=== PATIENT | female | born 1995 | race Caucasian/White ===

== ENCOUNTER 2018-02-14 10:04 | Day surgery (SDC) | payer SELFPAY ==
--- NOTE | 2018-02-11 15:37 | EKG12_ITS ---
Test Reason : PREOP Blood Pressure : / mmHG Vent. Rate : 082 BPM Atrial Rate : 082 BPM P-R Int : 132 ms QRS Dur : 090 ms QT Int : 372 ms P-R-T Axes : 063 074 059 degrees QTc Int : 434 ms Normal sinus rhythm Normal ECG Confirmed by MO MELCHOR, MARY ([id number]), medical transcription editor CHELSEA JORGE ([id number]) on 02/12/2018 11:14:06 AM Referred By: Liza Ayala Confirmed By:MARY HASSAN MD
[2018-02-11 16:38] LABS: Internal QC Validated? YES +Cl - CLEAR BKGD; Pregnancy, Urine Negative Negative
[2018-02-11 17:02] LABS: Hematocrit 44.4 % (37-47); Hemoglobin 15.1 g/dl (12.0-15.0); Mean Corpuscular Hgb 30.4 pg (27.0-32.0); Mean Corpuscular Volume 89.3 fL (81-99); Mean Platelet Vol. 10.1 fl (6.2-12.0); Platelet Count 240 K/mm3 (150-450); RBC Distribution Width CV 12.4 % (11.6-14.6); RBC Distribution Width SD 39.5 fl (35.1-43.9); Red Blood Count 4.97 M/mm3 (4.2-5.4); Scan Indicated on CBC? Y/N NO; White Blood Count 6.5 K/mm3 (4.4-11.0)
[2018-02-14 10:24] LABS: Internal QC Validated? YES +Cl - CLEAR BKGD; Pregnancy, Urine Negative Negative
[2018-02-14 10:39] VITALS: BP 102/72; PULSE 94; RESP 18; TEMP 37.1; O2SAT 100; BMI 21.9
[2018-02-14 11:01] LABS: Bedside Glucose 89 mg/dL (70-110)
--- NOTE | 2018-02-14 12:45 | PCM.OPRPT ---
Report of Operation Date of Procedure: 02/14/18 Pre-Operative Diagnosis: Pelvic pain, malpositioned IUD Post-Operative Diagnosis: Same Surgery/Procedure Performed:: Hysteroscopy with Mirena IUD removal Description of Surgical Findings:: Normal-appearing cervix and endometrial cavity. The IUD was in the midportion of the uterine cavity, the left arm was able to be completely identified within the uterine cavity the right arm just the very distal part extended into the myometrium on the right lateral side. Both tubal ostia were normal. retail wireless sales representative: None Type of Anesthesia:: MAC/Supplemental/Local Anesthesiologist: Gibson Fernández Special Medications: none Specimen's removed: IUD Drains: none Estimated Blood Loss (mL): 10cc Fluids Replaced: 800cc Description of Procedure: The patient was taken to the OR where she was prepped and draped in dorsal lithotomy position. The weighted speculum was placed in the vagina and the anterior lip of the cervix was grasped with a single-tooth tenaculum. The cervix was dilated serially with Hegar dilators. The 5mm hysteroscope was placed into the uterine cavity and the above findings were noted. The Mirena IUD appeared to be in the midportion of the endometrium, with just a small portion of the right arm being in the endometrial cavity. The strings were pulled up around the Mirena. A hysteroscopic grasper was used to grasp the strings and bring them out through the endocervical canal. I then used a Mago clamp to firmly grasp the strings and gently pull the Mirena IUD out intact. Bilateral tubal ostia were identified. The hysteroscope was removed. All sponge and needle counts were correct. Vaginal sweep was performed by me. The patient was awakened and taken to the recovery room in stable condition. Hysteroscopic ins: 150 cc normal saline Hysteroscopic outs: 100 cc Findings: Endometrial cavity: Normal, no fibroids or polyps noted Cervix: Normal Vagina: Normal Grafts/Implants Used: none - Complications none - Admit VTE Documentation VTE Present on Admission: No VTE Mechan Device Prophylaxis: None VTE Pharm Prophylaxis ordered?: No Reason prophylaxis not ordered:: Procedure Not Indicated
[2018-02-14 12:50] VITALS: BP 102/72; BP 97/48; PULSE 95; RESP 16; TEMP 36.6; O2SAT 96
--- NOTE | 2018-02-14 12:53 | DCINST_ITS ---
Discharge Diet: No Restrictions - resume your normal diet Discharge Activity: Return to Normal Activity, May Drive - today, May Shower, M ay Take a Tub Bath - in 2 weeks. Return to work on:: 02/17/18 May shower in (days): 1 May resume sexual activity in: 1 week Call your doctor if your incision/area has: Sudden Increased Bleeding, Foul Smelling Discharge Call your doctor if you observe: Fever of 101 or Higher, Using more than one pad per hour - for 2 hrs in a row Allergies/Adverse Reactions: Allergies codeine Allergy (Verified 02/11/18 15:28) Hives penicillin Allergy (Verified 02/11/18 15:28) Vomiting Medications to take at Discharge Insulin Glargine,Hum.rec.anlog [Lantus] 8 unit SQ BID 10/04/14 Insulin Lispro [Humalog] 6 - 8 unit SQ TID 10/04/14 Norgestimate-Ethinyl Estradiol [Tri-Previfem Tablet] 1 each PO DAILY #1 pack 02/14/18 The following prescriptions were given: Norgestimate-Ethinyl Estradiol [Tri-Previfem Tablet] 1 each PO DAILY #1 pack Primary Care Physician: Care Physician,No Primary [Primary Care Provider] - Test Results: Test results from this visit will be discussed in further detail at your follow- up appointment, if applicable. Please Follow Up With: Liza Ayala MD - [phone] When: as needed
[2018-02-14 12:55] VITALS: BP 102/72; BP 98/52; PULSE 78; RESP 16; O2SAT 97
[2018-02-14 13:00] VITALS: BP 102/72; BP 98/54; PULSE 83; RESP 16; O2SAT 97
[2018-02-14 13:05] VITALS: BP 102/72; BP 96/52; PULSE 78; RESP 16; TEMP 36.3; O2SAT 98
[2018-02-14 13:51] VITALS: BP 102/72; BP 120/70; PULSE 78; RESP 18; TEMP 36.8; O2SAT 99
== END 2018-02-14 13:55 | disposition home or self-care (01) ==
LOC: SDC 10:04 → AC 10:06
PROVIDERS: Referring Provider Obstetrics & Gynecology; Visit Provider Obstetrics & Gynecology
PROC: (CPT 49320; principal; 2018-02-14 11:45)
DX: R10.2 Pelvic and perineal pain (principal); T83.32XA Displacement of intrauterine contraceptive device, initial encounter; Y76.2 Prosthetic and other implants, materials and accessory obstetric and gynecological devices associated with adverse incidents; E10.9 Type 1 diabetes mellitus without complications; Z79.4 Long term (current) use of insulin
CPT/HCPCS: 58558; 58579; 36415; 81025; 82962; 85027; 93005; J7120

== ENCOUNTER 2020-01-10 02:15 | Outpatient (CLI) | payer OTHER, SELFPAY ==
[2020-01-10 02:32] VITALS: BMI 29.1
[2020-01-10 02:39] VITALS: BP 113/64; PULSE 117; TEMP 36.5; O2SAT 97
[2020-01-10 03:00] LABS: Bacteria 0 SEEN /hpf (None Seen); Mucous, Urine 0 SEEN /hpf (<or=2+); Red Blood Cells-Urine 0 SEEN /hpf (0-5)
[2020-01-10 03:01] LABS: Color, Urine Yellow (Yellow); Glucose, Dipstick 1000 mg/dl (Normal); Ketone-Dipstick 15 mg/dl (Negative); Leukocyte Esterase-Dipstick 25 /ul (Negative); Nitrite-Dipstick Negative (Negative); Occult Blood-Urine Negative /ul (Negative); Protein-Dipstick Negative (Negative); Specific Gravity, Urine 1.015 (1.002-1.030); Urine Bilirubin Dipstick Negative (Negative); Urine Clarity Clear (Clear); Urine Urobilinogen Normal (Normal)
[2020-01-10 03:06] LABS: Squamous Epithelial Cells - UA 0-5 SEEN /hpf (5-10); White Blood Cells 0-5 SEEN /hpf (0-5)
[2020-01-10] MEDS: Lactated Ringers 500 ML 999 ML IV (03:15)
[2020-01-10] MEDS: Lactated Ringers 1,000 ML 200 ML IV (03:15)
[2020-01-10 04:38] VITALS: BP 109/66; PULSE 105; TEMP 36.8; O2SAT 96
--- NOTE | 2020-01-10 04:40 | NURSING ---
this RN received telephone order per mahesh BRAUN to increase IV fluids to give pt the entire bag of LR that is remaining within the next hour to two hours. this RN increased IV fluids to 600cc/hr.
[2020-01-10 05:56] VITALS: BP 112/66; PULSE 110; TEMP 36.7; O2SAT 98
--- NOTE | 2020-01-10 17:12 | OB.TRI.NOTE ---
- Problem List (1) 31 weeks gestation of Status: Acute (2) Type 1 diabetes mellitus Status: Acute History of Present Illness Date of Service: 01/10/20 Was patient seen by the physician?: No Reason For Visit: back paint Final WIL: 03/12/20 Final WIL Source: LMP Gestational age: 31 Weeks and 1 Days History of Present Illness: Patient is a 24 year old at 31.1 weeks that presents to triage with lower back pain that started earlier in the evening. The back pain is now radiating to the front lower pelvic area. Denies any loss of fluid or vaginal bleeding. Positive movement. Type 1 DM with insulin pump in place. Allergies codeine Allergy (Verified 01/10/20 02:32) Hives penicillin Allergy (Verified 01/10/20 02:32) Vomiting Laboratory Studies: Laboratory Tests 01/10/20 Range/Units 02:55 Urine Color Yellow (Yellow) Urine Clarity Clear (Clear) Urine pH 7.0 (5.0 - 8.0) Ur Specific [place] 1.015 (1.002-1.030) Urine Protein Negative (Negative) mg/dl Urine Glucose (UA) 1000 H (Normal) mg/dl Urine Ketones 15 H (Negative) mg/dl Urine Occult Blood Negative (Negative) /ul Urine Nitrite Negative (Negative) Urine Bilirubin Negative (Negative) mg/dL Urine Urobilinogen Normal (Normal) mg/dl Ur Leukocyte Esterase 25 H (Negative) /ul Urine RBC 0 SEEN (0-5) /hpf Urine WBC 0-5 SEEN (0-5) /hpf Ur Squamous Epith Cells 0-5 SEEN (5-10) /hpf Urine Bacteria 0 SEEN (None Seen) /hpf Urine Mucus 0 SEEN (<or=2+) /hpf Review of Systems Constitutional: Denies: Chills, Fever Cardiovascular: Denies: Chest Pain Respiratory: Denies: Cough, Shortness of Breath Gastrointestinal: Reports: Nausea. Denies: Abdominal Pain Genitourinary: Denies: Dysuria Physical Exam Vitals: Vital Signs Temp Pulse BP Pulse Ox 98.1 F 110 H 112/66 98 01/10/20 05:56 01/10/20 05:56 01/10/20 05:56 01/10/20 05:56 General: Alert, Oriented x3 Cardiovascular: Regular rate Lungs: Normal air movement Abdomen: Soft, Non Tender, Gravid Neurological: Cranial nerves II-XII grossly intact NST - FHR Rate Baby A Baseline: 140 Variability:: Moderate Accelerations:: 15 x 15 Decelerations:: None NST Reactive:: Appropriate for gestational age Uterine Activity:: Irregular- Every 2-6 minutes. PALPATE MILD AND RELAXED IN BETWEEN Impression/Plan at 31.1 weeks gestation with back and lower pelvic pain. Patient is a Type 1 DM with insulin pump Category 1 tracing Suspect dehydration Contractions noted via TOCO- palpate mild and patient unaware that she was having them UA collected and sent- +ketones, +glucose IV fluids started- 500 cc bolus given and them to run at 250 cc/hr CE- closed, thick and high Will hydrate with IV fluids and recheck for cervical change After extended monitoring, if no CE- Patient to be d/c home to follow up in office Dr. Calabrese involved in plan of care.
== END 2020-01-10 06:15 | disposition home or self-care (01) ==
LOC: WPOUT 02:21 → WP 02:22
PROVIDERS: Visit Provider Advanced Practice Midwife
DX: O26.893 Other specified pregnancy related conditions, third trimester (principal); M54.5 Low back pain; R10.2 Pelvic and perineal pain; O24.013 Pre-existing type 1 diabetes mellitus, in pregnancy, third trimester; E10.9 Type 1 diabetes mellitus without complications; Z3A.31 31 weeks gestation of pregnancy; Z96.41 Presence of insulin pump (external) (internal)
CPT/HCPCS: 96360; 96361; 59025; 59050; 81001; 99218; J7120; G0378

== ENCOUNTER 2020-01-19 05:00 | Outpatient (CLI) | payer OTHER, MEDICAID, SELFPAY ==
[2020-01-19 05:11] VITALS: BMI 28.4
[2020-01-19 05:16] VITALS: BP 106/66; PULSE 107; TEMP 36.3; O2SAT 97
[2020-01-19 06:18] LABS: Bacteria 0 SEEN /hpf (None Seen); Mucous, Urine 0 SEEN /hpf (<or=2+); Red Blood Cells-Urine 0 SEEN /hpf (0-5)
[2020-01-19 06:19] LABS: Color, Urine Yellow (Yellow); Glucose, Dipstick 1000 mg/dl (Normal); Ketone-Dipstick Negative (Negative); Leukocyte Esterase-Dipstick 100 /ul (Negative); Nitrite-Dipstick Negative (Negative); Occult Blood-Urine Negative /ul (Negative); Protein-Dipstick 15 mg/dl (Negative); Urine Bilirubin Dipstick Negative (Negative); Urine Clarity Clear (Clear); Urine Urobilinogen Normal (Normal); Urine pH 6.5 (5.0 - 8.0)
[2020-01-19 06:27] LABS: Squamous Epithelial Cells - UA 10-25 SEEN /hpf (5-10); White Blood Cells 10-25 SEEN /hpf (0-5)
[2020-01-19 06:37] VITALS: BP 101/65; PULSE 104; TEMP 36.2; O2SAT 100
[2020-01-19 07:18] VITALS: TEMP 36.4; O2SAT 99
[2020-01-19 07:19] VITALS: BP 116/71; PULSE 103
[2020-01-19] MEDS: Lactated Ringers 1,000 ML 999 ML IV (07:58)
--- NOTE | 2020-01-25 08:27 | OB.TRI.PN_ITS ---
Progress Notes Date of Service: 01/19/20 Progress Note: 24 year old female at 32w3d presented with contractions. No vaginal bleeding or leakage of fluid. DM type 2 with insulin pump O: FHT 130, moderate variability, accels, no decels TOCO: [id number] then decreased to every 8-10minutes, mild Cervix: closed, posterior A: False Labor P: 1) False labor and closed cervix. 2) No celestone at this time due to no cervical change. Type 2 DM on insulin and will not give celestone unless indicated by cervical change. Consulted and agrees with plan Laboratory Studies: Laboratory Tests 01/19/20 Range/Units 06:10 Urine Color Yellow (Yellow) Urine Clarity Clear (Clear) Urine pH 6.5 (5.0 - 8.0) Ur Specific [place] 1.020 (1.002-1.030) Urine Protein 15 H (Negative) mg/dl Urine Glucose (UA) 1000 H (Normal) mg/dl Urine Ketones Negative (Negative) mg/dl Urine Occult Blood Negative (Negative) /ul Urine Nitrite Negative (Negative) Urine Bilirubin Negative (Negative) mg/dL Urine Urobilinogen Normal (Normal) mg/dl Ur Leukocyte Esterase 100 H (Negative) /ul Urine RBC 0 SEEN (0-5) /hpf Urine WBC 10-25 SEEN (0-5) /hpf Ur Squamous Epith Cells 10-25 SEEN (5-10) /hpf Urine Bacteria 0 SEEN (None Seen) /hpf Urine Mucus 0 SEEN (<or=2+) /hpf
== END 2020-01-19 09:08 | disposition home or self-care (01) ==
LOC: WPOUT 05:08 → OBT 05:10
PROVIDERS: Visit Provider Advanced Practice Midwife
DX: O47.03 False labor before 37 completed weeks of gestation, third trimester (principal); O24.414 Gestational diabetes mellitus in pregnancy, insulin controlled; Z3A.32 32 weeks gestation of pregnancy
CPT/HCPCS: 96360; 59025; 59050; 81001; 87086; 99218; G0378

== ENCOUNTER 2020-02-07 15:40 | Inpatient (IN) | payer OTHER, MEDICAID, SELFPAY ==
[2020-02-07] VITALS (34 sets, daily range): BP systolic 96–127; BP diastolic 55–83; PULSE 91–118; RESP 16; TEMP 36.1–37.3; O2SAT 99–100; BMI 29.3
[2020-02-07] MEDS: Lactated Ringers 1,000 ML 999 ML IV (15:00)
[2020-02-07 15:22] LABS: Absolute Lymphocyte Count 1.33 X10^3/uL (0.83-4.51); Absolute Neutrophil Count 6.2 X10^3/uL (2.0-7.7); Basophil# 0.02 X10^3/uL; Basophil% 0.2 % (0-1); Eosinophil# 0.07 X10^3/uL; Eosinophils% 0.8 % (0-5); Hematocrit 33.1 % (37-47); Hemoglobin 10.4 g/dL (12.0-15.0); Lymphocyte # 1.33 X10^3/ul (4.0); Lymphocyte % 15.9 % (19-41); Mean Corp Hgb Conc 31.4 g/dL (32-36); Mean Corpuscular Hgb 26.5 pg (27.0-32.0); Mean Corpuscular Volume 84.4 fL (81-99); Mean Platelet Vol. 9.6 fl (6.2-12.0); Monocyte# 0.73 X10^3/uL; Monocyte% 8.7 % (0-10); NRBC Flagged by Analyzer 0 % (0-5); Neutrophil # 6.15 X10^3/uL (2.7-7.7); Neutrophil % 73.8 % (47-70); Platelet Count 244 K/mm3 (150-450); RBC Distribution Width CV 14.1 % (11.6-14.6); RBC Distribution Width SD 42.9 fl (35.1-43.9); Red Blood Count 3.92 M/mm3 (4.2-5.4); White Blood Count 8.4 K/mm3 (4.4-11.0)
[2020-02-07] MEDS: Lactated Ringers 1,000 ML 200 ML IV ×2 (16:40→21:46)
[2020-02-07 16:41] LABS: Group B Strep DNA By PCR Negative (Negative); Internal Control PASS; Probe Check PASS; Specimen Processing Control PASS
[2020-02-07] MEDS: fentaNYL-bupivacaine (epidural) 100 ML BAG EPIDURAL ×2 (17:05→21:35)
[2020-02-07] MEDS: Mag Hydrox/Al Hydrox/Simeth 30 ML UDC PO (18:02)
[2020-02-07] MEDS: Ondansetron 4 MG/2 ML Vial IV (18:02)
--- NOTE | 2020-02-07 18:16 | PCM.HP.OB ---
History Date of Admission: 02/07/20 Final WIL: 03/11/20 Final WIL Source: US <20 weeks Gestational age: 35 Weeks and 2 Days History of this : This is a 24 year-old w/ poorly controlled type 1 Dm, last hgb A1c was 8.2. Had an US on 02/02 w/ mild polyhydrmanios and EFW of 3702 gm. Presents complaining contractions since approximately 5 AM. They became more more intense throughout the day. When she arrived to labor and delivery she was found to be 4 cm. She progressed to 5. She was admitted in labor. She denied any gross vaginal bleeding or leaking of fluid. She denies any headache or visual changes. He is on an insulin pump. Managed by endocrinology and she has instructions for what to change settings to once she delivers. Medical History: Medical History (Last Updated 01/10/20 @ 17:14 by Charisse Infante CNM) Insulin pump in place Z96.41 Allergies codeine Allergy (Verified 02/07/20 14:54) Hives penicillin Allergy (Verified 02/07/20 14:54) Vomiting Home Medications: Home Medications Insulin Lispro [Humalog] 6 - 8 unit SQ TID 10/04/14 Acetaminophen [Tylenol] 325 mg PO PRN PRN 01/10/20 Prenat 115/Iron Fum/Folic/Dss 1 tab PO DAILY 01/10/20 Ondansetron HCl [Zofran] 4 mg PO PRN PRN 02/07/20 Smoking Status: Never smoker Alcohol: None Number of Fetus(es): 1 History Past Pregnancies: Past Pregnancies Delivery Date Name GA/ Weeks Outcome Route Wt Infant Sex Labor Length Anesthesia Delivery Location Provider FOB Review of Systems Constitutional: Denies: Anorexia, Chills, Fever Eyes: Denies: Blurred vision HEENT: Denies: Hard of Hearing Respiratory: Denies: Cough, Shortness of Breath Gastrointestinal: Denies: Diarrhea, Vomiting Genitourinary: Denies: Dysuria Skin: Denies: Rash Neurological: Denies: Blurred vision, Double vision, Slurred speech Hematologic/ Lymphatic: Denies: Hx of blood clot Physical Exam Vitals: Vital Signs Temp Pulse BP Pulse Ox 97.7 F L 101 H 118/70 100 02/07/20 17:28 02/07/20 17:28 02/07/20 17:28 02/07/20 17:28 General: Alert, Cooperative, No apparent distress Cardiovascular: Regular rate Lungs: Normal air movement Abdomen: Soft, Non Tender, Non-Distended, Gravid, - - large for gest age Extremities:: Other - edema 1+ Neurological: Cranial nerves II-XII grossly intact. Negative for: Slurred Speech SALES ACCOUNT MANAGER: Normal external genitalia Estimated gestational size: Appropriate for gestational size Presentation: Cephalic Cervix Dilation (cm): 7 Station: 0 Effacement (%): 90 Assessment/Plan All Active Problems (Last Updated 01/10/20 @ 17:14 by Charisse Infante CNM) 31 weeks gestation of (Acute) Type 1 diabetes mellitus (Acute) This is a 24 year-old avid 2 para 1 at 35-2/7 weeks gestation with spontaneous premature labor. Patient was given 1 dose of antibiotic prophylaxis before rapid group B strep returned. Group B strep is now known to be negative. Decision was made not to proceed with betamethasone. It was determined that clinically there would be minimal time for the fetus to benefit. Since it could cause significant fluctuations in difficulty controlling glucose throughout the patient's labor, it was felt that the control harms outweighed any small potential benefit. We will monitor the patient's glucose with her own glucometer. Will allow her to continue with the insulin pump and less glucose levels become significantly labile. Mean weight is less than 4500 g and pelvis clinically adequate to expect vaginal delivery. Epidural as needed for pain control.
[2020-02-07] MEDS: proCHLORPERazine 10 MG/2 ML Vial IV (20:24)
--- NOTE | 2020-02-07 22:21 | PCM.PN.BLA ---
Progress Note Patient was pushing for approx 1.5 hrs, was frustrated and pushing ineffectively. Offered trial of low vacuum. She desired to proceed. Station was +2/5, no significant caput, bladder had been emptied, epidural in. EFW < 4500 gm. Postion was OA. Vacuum placed on flexion point and vacuum created to 550 mm hg. Pulled w/ 4 ctxs, 2 pop offs and no signif. descent. D/w patient option of c/s vs continued second stage. recommended continued second stage. pushed for a total of 3 hrs and was still +3/5 station w/ significant caput now. R/B/A/P to primary c/s vs continued pushing reviewed, patient desires to proceed w/ c/s for arrest of descent and cephalopelvic disproportion . STROKE Vital Signs/Narrative: Vital Signs Temp Pulse Resp BP Pulse Ox 02/07/20 21:49 97.2 F L 02/07/20 21:48 98.2 F 91 16 121/61 H 100 02/07/20 21:40 97.3 F L 97 121/61 H 02/07/20 20:15 91 100 02/07/20 20:14 97.0 F L 118/60 02/07/20 19:17 97.0 F L 02/07/20 19:16 97.2 F L 02/07/20 19:15 98.0 F 115 H 96/55 L 100 02/07/20 18:50 98.4 F 100 108/68 100
[2020-02-07] MEDS: Cefazolin 2 GM in 0.9% Normal Saline 100 ML IV (22:43)
--- NOTE | 2020-02-07 23:50 | OP.PCM_ITS ---
Delivery Classification: BRENDA Final WIL: 03/11/20 Final WIL Source: US <20 weeks Gestational age: 35 Weeks and 2 Days dump truck operator: Fausto De La Rosa Type of Anesthesia:: Epidural Special Medications: duramorph Implants Used: none Date of Procedure: 02/07/20 Pre-Operative Diagnosis: CPD, arrest of descent, labor, type 1 Dm Post-Operative Diagnosis: same Description of Procedure: Procedure: Primary low transverse section via Pfannenstiel skin incision with bilateral salpingectomy Patient was complete and had pushed for 3 hours. Trial of vacuum-assisted vaginal delivery was unsuccessful, you progress note for details of this p rocedure. The decision was made to proceed with a section. The patient was taken to the operating room. She was prepped and draped in the dorsal supine position with a leftward tilt. A Pfannenstiel skin incision was made approximately 2 cm above the symphysis pubis and carried through to underlying layer fascia with the scalpel. The fascia was incised incised in the midline and extended laterally with dissection. The fascia was dissected off the rectus muscles with blunt and sharp dissection superiorly. The rectus muscles were in the midline and the peritoneum was entered bluntly. The peritoneal incision was stretched and the bladder blade was placed. The uterine incision was made in a low transverse fashion with the scalpel and extended superiorly and inferiorly with blunt dissection. I was able to get my hand under the skull and I was unable to break the suction. I switched hands and even with an assisting hand from below I was unable to break the s uction. After approximately 60 seconds of attempting this, I was able to reach up and grasp the infant's buttocks and legs and bring the breech to the incision. The legs were swept out and the buttocks were delivered. The baby was kept back up. The arms were swept out. A finger was placed on the maxilla and I was able to then reach a hand under the head and deliver the infant without traction on the neck. The infant was not immediately vigorous and the cord was therefore quickly clamped and cut. The was handed off to the waiting nursing staff. The placenta was delivered with fundal massage and gentle traction in the standard fashion. The uterus was exteriorized and cleared of all clots and debris. . The uterine incision was closed with #1 Vicryl in a running locked fashion. [id number] sutures were needed to obtain hemostasis, especially in the lateral corners. There were lacerations on both sides of the cervix extending down. There is still a small amount of oozing from the left side of the incision and some fibrillar was placed there for hemostasis. Some Johan was then placed over the incision. The incision was examined and was found to be hemostatic. Patient confirmed she wanted a bilateral salpingectomy. Being that this was an unanticipated delivery and an unscheduled, urgent section that was decision was made to proceed with a tubal sterilization patient's request. Patient requested this while she was still in the labor room. Risk benefits and alternatives and personnel involved have been discussed with the patient. The left tube was identified and followed out to fimbriated end. The LigaSure for device was used to clamp, seal and transect the tube from the uterus. I then clamped across the antimesenteric portion of the tube, sealed and transected with the LigaSure device until the tube was amputated. The site was hemostatic. The same procedure was performed on the contralateral side. Hemostasis of these pedicles was again confirmed. The uterus was placed back into the peritoneal cavity and hemostasis was again confirmed. The rectus muscles were examined and any bleeding was Bovie caut erized. The parietal peritoneum and rectus muscles were closed en bloc with an 0 Vicryl running suture. The surgical teams outer gloves were then changed. The rectus fascia was examined and any bleeding was Bovie cauterized and the rectus fascia was closed with 0 PDS suture in a running standard fashion. The subcutaneous tissue was examining and any bleeding was Bovie cauterized. The subcutaneous tissue was reapproximated with 3-0 Vicryl suture. The skin was closed in a subcuticular fashion by the CHICK[employer] AND [employer] BUT[employer]ER with me present in the labor and delivery suite. I performed the remainder of the procedure with assistance. All sponge, lap, and needle counts were correct. The patient was taken to her room for recovery in a stable condition. Start time 2258 Delivery time 2303 Stop time 0002 Amniotic Membrane Rupture Type: Artificial Amniotic Fluid Description: Clear Placenta Disposition: Sent to Pathology Specimen(s) sent to pathology: placenta, bilateral fallopian tubes Drain: De Dios to straight drain Fluids Replaced: 1300 Cord Entanglement: None Cord Vessel Description: 3 Vessels Esitmated Blood Loss (ml): 900 Gender: Male Delayed cord clamping: No Antibiotic Given: Ancef 2 grams IV x1, Zithromax 500 mg/5 mL X1 Complications: None - Admit VTE Documentation VTE Present on Admission: No VTE Mechan Device Prophylaxis: SCD's VTE Pharm Prophylaxis ordered?: No Reason prophylaxis not ordered:: Procedure Not Indicated
[2020-02-08] VITALS (53 sets, daily range): BP systolic 98–122; BP diastolic 53–73; PULSE 90–114; RESP 14–18; TEMP 36.2–37.4; O2SAT 93–100
--- NOTE | 2020-02-08 | FALS_PTH ---
PATIENT: ROLAND LIN LOC: [facility] U#:[id number] AGE/SX: 24/F ROOM: WP001 RE02/07/[address]: Dr. Liza Ayala MD : 1995 BED: 1 DIS: 02/10/2020 SPEC #: [id number] RECD: 02/08/20 03:30 STATUS: MELANIE REYi #: [id number] DEBBIE: 02/08/20 00:[address]: Liza Ayala DEPT: SURGICAL PATHOLOGY RECD BY: Aron Javier ENTERED: 02/08/20 10:22 SP TYPE: FALL TUBES OTHR DR: No Primary Care Phys Tissues: Fallopian tube Procedures: Surgery Specimen Level II HEADER OPERATION: Tubal ligation PRE-OP DIAGNOSIS: Sterilization TISSUE SUBMITTED: A - Left fallopian tube, B - Right fallopian tube MICROSCOPIC DIAGNOSIS A. Left fallopian tube, salpingectomy: Fallopian tube including fimbrial end, no pathologic diagnosis. B. Right fallopian tube, salpingectomy: Fallopian tube including fimbrial end, no pathologic diagnosis. PANCHO:laina 02/09/20 MICROSCOPIC DESCRIPTION Slides are reviewed. GROSS DESCRIPTION A - Received in fixative is one container labeled with the patient's name and designated left fallopian tube. The specimen consists of a fallopian tube including fimbrial end measuring 7 cm in length and 0.7 cm in diameter. Sections reveal unremarkable cut surfaces. Publication Editor sections are submitted in one cassette. B - Received in fixative is one container labeled with the patient's name and designated right fallopian tube. The specimen consists of a fallopian tube including fimbrial end measuring 7 cm in length and 0.7 cm in diameter. Sections reveal unremarkable cut surfaces. Publication Editor sections are submitted in one cassette. / PANCHO:laina 02/08/20 TC:4 CPT: 47673 x2
[2020-02-08] MEDS: Lactated Ringers 1,000 ML 100 ML IV ×2 (00:30→03:45)
[2020-02-08] MEDS: Oxytocin 30 units/NS 500 ml 30 UNITS/500 ML IV.SOLN 167 UNITS IV (00:30)
--- NOTE | 2020-02-08 01:00 | NURSING ---
BGT 153 per patients insulin pump per recovery nurse [facility]. Insulin pump self delivered insulin at that time.
[2020-02-08] MEDS: Acetaminophen 500 MG Tablet 1000 MG PO ×4 (02:23→20:23)
[2020-02-08 03:32] LABS: Pathology Specimen OB SEE PATHOLOGY REPORT
--- NOTE | 2020-02-08 04:10 | NURSING ---
This RN assuming care of patient at this time. Received report from [facility] MILL[facility] and Gerardo RN. Patient sleeping at this time. RN in room to perform first hourly vitals.
[2020-02-08] MEDS: Ketorolac 30 MG/ML Syringe IV ×4 (06:07→23:41)
[2020-02-08 06:42] LABS: Hematocrit 27.5 % (37-47); Hemoglobin 8.7 g/dL (12.0-15.0); Mean Corp Hgb Conc 31.6 g/dL (32-36); Mean Corpuscular Hgb 26.6 pg (27.0-32.0); Mean Corpuscular Volume 84.1 fL (81-99); Mean Platelet Vol. 9.7 fl (6.2-12.0); Platelet Count 225 K/mm3 (150-450); RBC Distribution Width CV 14.3 % (11.6-14.6); RBC Distribution Width SD 43.3 fl (35.1-43.9); Red Blood Count 3.27 M/mm3 (4.2-5.4); White Blood Count 11.4 K/mm3 (4.4-11.0)
--- NOTE | 2020-02-08 06:53 | NURSING ---
Patient before breakfast BGT assessed per insulin pump for result of 144. Patient eating a yogurt at this time.
[2020-02-08] MEDS: Senna/Docusate Sodium 1 Tablet PO (09:49)
[2020-02-08] MEDS: 0.9% Saline Lock 10 ML Syringe IV ×3 (12:09→23:42)
--- NOTE | 2020-02-08 12:11 | NURSING ---
glucose per pt's meter reads 113
--- NOTE | 2020-02-08 12:27 | NURSING ---
pt up to bathroom to void, unable at this time. reminded that has until 1400 before further intervention needed. rn encouraged po intake increase. pt then ambulated to PP room 1 at this time
--- NOTE | 2020-02-08 12:34 | PCM.PN.OB ---
Subjective: Doing well per patient and nursing staff. Ambulating and taking PO without difficulty. Voiding and passing flatus. Baby in special care nursery due to BS. Denies shortness of breath, chest pain, leg pain or increased lochia. - Physical Exam Vitals/I&O's: Vital Signs Temp Pulse Resp BP Pulse Ox 97.8 F 98 16 98/53 L 97 02/08/20 11:58 02/08/20 11:58 02/08/20 11:58 02/08/20 11:58 02/08/20 11:58 Oxygen Delivery Method Room Air Weight: 171 lb 1.259 oz Body Mass Index (BMI) 29.3 Intake and Output for Last 24 Hours 02/06/20 02/07/20 02/08/20 23:59 23:59 23:59 Intake Total 2611.67 / 2611.67 1340.00 / 1340.00 Output Total 500 / 500 Balance 2611.67 / 2611.67 840.00 / 840.00 General: Alert, Oriented x3, Cooperative HEENT: Atraumatic, Normocephalic Neck: Trachea Midline Lungs: Clear to auscultation, Normal air movement, No rhonchi, No wheeze Cardiovascular: Regular rate, Regular Rhythm Abdomen: Bowel Sounds Present, Soft - Fundus firm 2 below U. Dressing dry and intact Extremities: No edema - Kelli's negative Psych/Mental Status: Normal Affect, Appropriate Microbiology Past 72 Hours 02/07/20 15:45 Mucosa - Nose SARS-CoV-2 Antigen (Rapid) - Final Laboratory Results 02/07/20 15:00: WBC 8.4, RBC 3.92 L, Hgb 10.4 L, Hct 33.1 L, MCV 84.4, MCH 26.5 L, MCHC 31.4 L, RDW Std Deviation 42.9, RDW Coeff of Dean 14.1, Plt Count 244, MPV 9.6, Immature Gran % (Auto) 0.600, Neut % (Auto) 73.8 H, Lymph % (Auto) 15.9 L, [place] % (Auto) 8.7, Eos % (Auto) 0.8, Baso % (Auto) 0.2, Absolute Neuts (auto) 6.2, Absolute Lymphs (auto) 1.33, Nucleated RBC % 0 02/07/20 15:00: Blood Type O POSITIVE, Antibody Screen NEGATIVE 02/07/20 15:00: Group B Strep DNA Negative, Specimen Comment Not Reportable 02/08/20 06:25: WBC 11.4 H, RBC 3.27 L, Hgb 8.7 L, Hct 27.5 L, MCV 84.1, MCH 26.6 L, MCHC 31.6 L, RDW Std Deviation 43.3, RDW Coeff of Dean 14.3, Plt Count 225, MPV 9.7 Current Medications Acetaminophen (Acetaminophen 500 Mg Tablet) 1,000 mg PO Q6H [facility] Last Admin: 02/08/20 07:59 Dose: 1,000 mg Documented by: Bisacodyl (Bisacodyl 10 Mg Suppository) 10 mg RECTAL UD PRN PRN Reason: If no BM Dextrose (Dextrose 50%-Water 25 Gm/50 Ml Disp.Syrin) 0 gm IV X1 PRN; Protocol PRN Reason: Hypoglycemia Diphenhydramine HCl (Diphenhydramine 25 Mg Capsule) 25 mg PO Q6H PRN PRN PRN Reason: ITCHING Stop: 02/08/20 22:33 Glucagon (Glucagon 1 Mg/Ml Syringe) 1 mg IM .X1 PRN PRN Reason: Hypoglycemia Hydrocortisone (Hydrocortisone 2.5% Crm) 1 applic TOPICAL TID PRN PRN; Protocol PRN Reason: Discomfort Ketorolac Tromethamine (Ketorolac 30 Mg/Ml Syringe) 30 mg IV Q6 [facility] Stop: 02/09/20 00:01 Last Admin: 02/08/20 12:00 Dose: 30 mg Documented by: Methylergonovine Maleate (Methylergonovine 0.2 Mg/Ml Ampul) 0.2 mg IM X1 PRN PRN Reason: Uterine Atony Nalbuphine HCl (Nalbuphine 10 Mg/Ml Ampul) 5 mg IV Q3H PRN PRN PRN Reason: ITCHING Stop: 02/08/20 22:33 Naloxone HCl (Naloxone 0.4 Mg/Ml Syringe) 0.02 mg IV Q1M PRN PRN Reason: RR <10 and pt unresponsive Naproxen (Naproxen 250 Mg Tablet) 500 mg PO Q8H [facility] Ondansetron HCl (Ondansetron 4 Mg/2 Ml Vial) 4 mg IV Q4H PRN PRN PRN Reason: Nausea Oxycodone HCl (Oxycodone 5 Mg Tablet) 5 - 10 mg PO Q4H PRN PRN PRN Reason: Pain Score 4-10 Prochlorperazine Edisylate (Prochlorperazine 10 Mg/2 Ml Vial) 10 mg IV Q6H PRN PRN PRN Reason: NAUSEA Senna/Docusate Sodium (Senna/Docusate Sodium 1 Tablet) 1 - 2 tablet PO DAILY [facility] Last Admin: 02/08/20 09:49 Dose: 1 tablet Documented by: Simethicone (Simethicone 80 Mg Tablet) 80 mg PO [facility]S PRN PRN Reason: Indigestion/stomach pain Sodium Chloride (0.9% Saline Lock 10 Ml Syringe) 5 - 15 ml IV UD PRN PRN Reason: SALINE FLUSH Last Admin: 02/08/20 12:09 Dose: 10 ml Documented by: Medical Necessity - Tobacco Use Smoking Status: Never smoker Assessment/Plan All Active Problems (Last Updated 01/10/20 @ 17:14 by Charisse Infante CNM) 31 weeks gestation of (Acute) Type 1 diabetes mellitus (Acute) A:POD #1 Primary Section Type 1 DM Acute blood loss anemia P: 1) Routine care 2) Hg 10.4 decreased to 8.7, will start iron supplement, repeat CBC in am 3) Insulin managed by Endocrinology and patient following per their recommendations. 4) Planning D/C home tomorrow.
[2020-02-08] MEDS: Ferrous Sulfate 325 MG Tablet PO (17:59)
--- NOTE | 2020-02-08 18:49 | NURSING ---
1800 bg 109 per pt
--- NOTE | 2020-02-08 23:50 | NURSING ---
Pt. reports HS blood sugar as 115 mg/dL.
[2020-02-09] MEDS: Acetaminophen 500 MG Tablet 1000 MG PO ×4 (02:29→20:24)
[2020-02-09 02:30] VITALS: BP 115/65; PULSE 82; RESP 15; TEMP 37.2
[2020-02-09 04:55] LABS: Absolute Lymphocyte Count 1.36 X10^3/uL (0.83-4.51); Absolute Neutrophil Count 7.7 X10^3/uL (2.0-7.7); Basophil# 0.01 X10^3/uL; Basophil% 0.1 % (0-1); Eosinophil# 0.06 X10^3/uL; Eosinophils% 0.6 % (0-5); Hematocrit 26.5 % (37-47); Hemoglobin 8.3 g/dL (12.0-15.0); Lymphocyte # 1.36 X10^3/ul (4.0); Lymphocyte % 13.5 % (19-41); Mean Corp Hgb Conc 31.3 g/dL (32-36); Mean Corpuscular Hgb 26.8 pg (27.0-32.0); Mean Corpuscular Volume 85.5 fL (81-99); Mean Platelet Vol. 9.5 fl (6.2-12.0); Monocyte# 0.77 X10^3/uL; Monocyte% 7.7 % (0-10); NRBC Flagged by Analyzer 0 % (0-5); Neutrophil # 7.73 X10^3/uL (2.7-7.7); Platelet Count 216 K/mm3 (150-450); RBC Distribution Width CV 14.8 % (11.6-14.6); RBC Distribution Width SD 44.9 fl (35.1-43.9)
[2020-02-09] MEDS: Naproxen 250 MG Tablet 500 MG PO ×3 (06:00→22:07)
--- NOTE | 2020-02-09 06:01 | NURSING ---
Pt. reports headache that was not relieved with the 0230 tylenol dose. Pt. refuses oxyir d/t codeine allergy. Was encouraged to rest. Aleve dose given at 0600 and this RN will follow up on pt. pain level. Reports frontal headache that is slightly throbbing at a pain level of 5/10. BP and vital signs WNL. Morning CBC showed Hgb dropped slightly but is stabilizing. Will continue to monitor.
[2020-02-09] MEDS: Senna/Docusate Sodium 1 Tablet PO (08:04)
[2020-02-09 08:18] VITALS: BP 100/73; PULSE 70; RESP 16; TEMP 36.5
--- NOTE | 2020-02-09 08:38 | PN.OBGYN_ITS ---
Subjective: Patient seen at bedside, doing well. Patient reports good pain control. Mild lochia. Denies any nausea or vomiting. Reports of blood sugars are slightly elevated but has bolused herself. Bottlefeeding. - Physical Exam Vitals/I&O's: Vital Signs Temp Pulse Resp BP Pulse Ox 97.7 F L 70 16 100/61 98 02/09/20 08:18 02/09/20 08:18 02/09/20 08:18 02/09/20 08:18 02/08/20 20:15 Oxygen Delivery Method Room Air Weight: 77.6 kg Body Mass Index (BMI) 29.3 Intake and Output for Last 24 Hours 02/07/20 02/08/20 02/09/20 23:59 23:59 23:59 Intake Total 2611.67 / 2611.67 1340.00 / 1340.00 Output Total 1200 / 1200 250 / 250 Balance 2611.67 / 2611.67 140.00 / 140.00 -250 / -250 General: Alert, Oriented x3 Abdomen: Soft, Non-Distended, Passing Flatus, - - Incision dressing dry and intact. Fundus firm. Extremities: No Calf Tenderness Neurological: Cranial nerves II-XII grossly intact Microbiology Past 72 Hours 02/07/20 15:45 Mucosa - Nose SARS-CoV-2 Antigen (Rapid) - Final Laboratory Results 02/09/20 04:50: WBC 10.0, RBC 3.10 L, Hgb 8.3 L, Hct 26.5 L, MCV 85.5, MCH 26.8 L, MCHC 31.3 L, RDW Std Deviation 44.9 H, RDW Coeff of Dean 14.8 H, Plt Count 216, MPV 9.5, Immature Gran % (Auto) 1.100 H, Neut % (Auto) 77.0 H, Lymph % (Auto) 13.5 L, [place] % (Auto) 7.7, Eos % (Auto) 0.6, Baso % (Auto) 0.1, Absolute Neuts (auto) 7.7, Absolute Lymphs (auto) 1.36, Nucleated RBC % 0 Current Medications Acetaminophen (Acetaminophen 500 Mg Tablet) 1,000 mg PO Q6H [facility] Last Admin: 02/09/20 08:02 Dose: 1,000 mg Documented by: Bisacodyl (Bisacodyl 10 Mg Suppository) 10 mg RECTAL UD PRN PRN Reason: If no BM Dextrose (Dextrose 50%-Water 25 Gm/50 Ml Disp.Syrin) 0 gm IV X1 PRN; Protocol PRN Reason: Hypoglycemia Ferrous Sulfate (Ferrous Sulfate 325 Mg Tablet) 325 mg PO 1200,1700 [facility] Last Admin: 02/08/20 17:59 Dose: 325 mg Documented by: Glucagon (Glucagon 1 Mg/Ml Syringe) 1 mg IM .X1 PRN PRN Reason: Hypoglycemia Hydrocortisone (Hydrocortisone 2.5% Crm) 1 applic TOPICAL TID PRN PRN; Protocol PRN Reason: Discomfort Methylergonovine Maleate (Methylergonovine 0.2 Mg/Ml Ampul) 0.2 mg IM X1 PRN PRN Reason: Uterine Atony Naloxone HCl (Naloxone 0.4 Mg/Ml Syringe) 0.02 mg IV Q1M PRN PRN Reason: RR <10 and pt unresponsive Naproxen (Naproxen 250 Mg Tablet) 500 mg PO Q8H [facility] Last Admin: 02/09/20 06:00 Dose: 500 mg Documented by: Ondansetron HCl (Ondansetron 4 Mg/2 Ml Vial) 4 mg IV Q4H PRN PRN PRN Reason: Nausea Oxycodone HCl (Oxycodone 5 Mg Tablet) 5 - 10 mg PO Q4H PRN PRN PRN Reason: Pain Score 4-10 Prochlorperazine Edisylate (Prochlorperazine 10 Mg/2 Ml Vial) 10 mg IV Q6H PRN PRN PRN Reason: NAUSEA Senna/Docusate Sodium (Senna/Docusate Sodium 1 Tablet) 1 - 2 tablet PO DAILY [facility] Last Admin: 02/09/20 08:04 Dose: 1 tablet Documented by: Simethicone (Simethicone 80 Mg Tablet) 80 mg PO [facility] PRN PRN Reason: Indigestion/stomach pain Sodium Chloride (0.9% Saline Lock 10 Ml Syringe) 5 - 15 ml IV UD PRN PRN Reason: SALINE FLUSH Last Admin: 02/08/20 23:42 Dose: 10 ml Documented by: Medical Necessity - Tobacco Use Smoking Status: Never smoker Assessment/Plan All Active Problems (Last Updated 01/10/20 @ 17:14 by Charisse Infante CNM) 31 weeks gestation of (Acute) Type 1 diabetes mellitus (Acute) Postop day #2-type I diabetic, section 1) monitor BS- managed by endocrinology 2) pain mgmt 3) ambulation 4) Baby is SCN- plan for dc home tomorrow
[2020-02-09] MEDS: Ferrous Sulfate 325 MG Tablet PO ×2 (12:22→17:05)
[2020-02-09 13:18] VITALS: BP 108/68; PULSE 74; RESP 18; TEMP 36.6
[2020-02-09 20:17] VITALS: BP 113/73; PULSE 95; RESP 16; TEMP 36.6
[2020-02-10 01:00] VITALS: BP 114/71; PULSE 98; RESP 16; TEMP 36.8
[2020-02-10] MEDS: Acetaminophen 500 MG Tablet 1000 MG PO ×2 (02:30→08:07)
--- NOTE | 2020-02-10 02:30 | NURSING ---
Pt. had a moment of hypoglycemia, her insulin pump continuous glucose monitor said 64 mg/dL, but pt. is completely asymptomatic. Juice and jello given, and blood sugar came up to 119 mg/dL. Pt. resting in bed, denies any further needs at this time. Will continue to monitor.
[2020-02-10] MEDS: Naproxen 250 MG Tablet 500 MG PO (06:05)
[2020-02-10 08:13] VITALS: BP 100/65; PULSE 102; RESP 14; TEMP 36.6
--- NOTE | 2020-02-10 08:58 | PN.OBGYN_ITS ---
Subjective: Pain well controlled. Average lochia. Tolerating regular diet. Managing blood sugars with insulin pump. Has had a bowel movement. Urinating without difficulty. Infant remains in special care nursery. - Physical Exam Vitals/I&O's: Vital Signs Temp Pulse Resp BP Pulse Ox 97.8 F 102 H 14 100/65 98 02/10/20 08:13 02/10/20 08:13 02/10/20 08:13 02/10/20 08:13 02/08/20 20:15 Oxygen Delivery Method Room Air Weight: 77.6 kg Body Mass Index (BMI) 29.3 Intake and Output for Last 24 Hours 02/08/20 02/09/20 02/10/20 23:59 23:59 23:59 Intake Total 1340.00 / 1340.00 Output Total 1200 / 1200 250 / 250 Balance 140.00 / 140.00 -250 / -250 General: Alert, Cooperative, No apparent distress Abdomen: Bowel Sounds Present, Distended - moderately, softly, Tender - appropriately Extremities: Edema - 1+ Microbiology Past 72 Hours 02/07/20 Unknown Genital vaginal Group B Streptococcus Culture - Final Group B Beta Streptococcus is not isolated. 02/07/20 15:45 Mucosa - Nose SARS-CoV-2 Antigen (Rapid) - Final Current Medications Acetaminophen (Acetaminophen 500 Mg Tablet) 1,000 mg PO Q6H [facility] Last Admin: 02/10/20 08:07 Dose: 1,000 mg Documented by: Bisacodyl (Bisacodyl 10 Mg Suppository) 10 mg RECTAL UD PRN PRN Reason: If no BM Dextrose (Dextrose 50%-Water 25 Gm/50 Ml Disp.Syrin) 0 gm IV X1 PRN; Protocol PRN Reason: Hypoglycemia Ferrous Sulfate (Ferrous Sulfate 325 Mg Tablet) 325 mg PO 1200,1700 [facility] Last Admin: 02/09/20 17:05 Dose: 325 mg Documented by: Glucagon (Glucagon 1 Mg/Ml Syringe) 1 mg IM .X1 PRN PRN Reason: Hypoglycemia Hydrocortisone (Hydrocortisone 2.5% Crm) 1 applic TOPICAL TID PRN PRN; Protocol PRN Reason: Discomfort Methylergonovine Maleate (Methylergonovine 0.2 Mg/Ml Ampul) 0.2 mg IM X1 PRN PRN Reason: Uterine Atony Naloxone HCl (Naloxone 0.4 Mg/Ml Syringe) 0.02 mg IV Q1M PRN PRN Reason: RR <10 and pt unresponsive Naproxen (Naproxen 250 Mg Tablet) 500 mg PO Q8H [facility] Last Admin: 02/10/20 06:05 Dose: 500 mg Documented by: Ondansetron HCl (Ondansetron 4 Mg/2 Ml Vial) 4 mg IV Q4H PRN PRN PRN Reason: Nausea Oxycodone HCl (Oxycodone 5 Mg Tablet) 5 - 10 mg PO Q4H PRN PRN PRN Reason: Pain Score 4-10 Prochlorperazine Edisylate (Prochlorperazine 10 Mg/2 Ml Vial) 10 mg IV Q6H PRN PRN PRN Reason: NAUSEA Senna/Docusate Sodium (Senna/Docusate Sodium 1 Tablet) 1 - 2 tablet PO DAILY [facility] Last Admin: 02/09/20 08:04 Dose: 1 tablet Documented by: Simethicone (Simethicone 80 Mg Tablet) 80 mg PO [facility] PRN PRN Reason: Indigestion/stomach pain Sodium Chloride (0.9% Saline Lock 10 Ml Syringe) 5 - 15 ml IV UD PRN PRN Reason: SALINE FLUSH Last Admin: 02/08/20 23:42 Dose: 10 ml Documented by: Medical Necessity - Tobacco Use Smoking Status: Never smoker Assessment/Plan All Active Problems (Last Updated 01/10/20 @ 17:14 by Charisse Infante CNM) 31 weeks gestation of (Acute) Type 1 diabetes mellitus (Acute) POD#3 s/p primary c/s w/ bilateral salpingectomy for sterilization ready for d/c infant still in SCN
--- NOTE | 2020-02-10 09:00 | DCINST_ITS ---
Discharge Diet: No Restrictions Discharge Activity: Return to Normal Activity, May Not Drive - for 2 weeks, May not drive while taking narcotic pain medications., May Shower, May Take a Tub Bath - in 7 days. May resume sexual activity in: 4-6 weeks Lifting Restrictions: 20 pounds Additional Activity Instructions:: Nothing in the vagina for 4-6 weeks. You may return to work/school in 6 weeks. Call your doctor if your incision/area has: Continuous Slow Oozing, Sudden Increased Bleeding, Increased Pain/ Swelling, Increased Redness, Foul Smelling Discharge Call your doctor if you observe: Fever of 101 or Higher, Using more than one pad per hour - for 2 hours Suture Line Care: Avoid Pulling/Pushing, Avoid Pinching/Bending Cleanse incision/area with: Keep Dressing Clean & Dry Additional Instructions: If you experience any of the following, contact your healthcare provider. * Bleeding that soaks a pad every hour for 2 hours * Fever 100.4 or higher * Unrelieved incision or abdominal pain * Swelling, redness, discharge or bleeding from your incision or episiotomy site * Your incision begins to separate * Problems urinating (including inability to urinate or burning while urinating). * Visual changes * Severe headache * Flu-like symptoms * Pain or redness in one of both of your breasts * Pain, warmth, tenderness or swelling in your legs, especially the calf area * Frequent nausea and vomiting * Symptoms of depression or anxiety If you experience any of the following, call 911 or go to the nearest Emergency Room. * Chest pain * Problems breathing * Seizure activity * Partial or complete paralysis of a body part, slurred speech, weakness or drooping of the face, or a sudden inability to walk or hold your balance Allergies/Adverse Reactions: Allergies codeine Allergy (Verified 02/07/20 14:54) Hives penicillin Allergy (Verified 02/07/20 14:54) Vomiting Medications to take at Discharge Insulin Lispro [Humalog] 6 - 8 unit SQ TID 10/04/14 Acetaminophen [Tylenol] 325 mg PO PRN PRN 01/10/20 Prenat 115/Iron Fum/Folic/Dss 1 tab PO DAILY 01/10/20 Ondansetron HCl [Zofran] 4 mg PO PRN PRN 02/07/20 Ibuprofen [Motrin] 600 mg PO Q6H PRN #60 tab 02/10/20 Oxycodone [Oxyir] 2.5 - 5 mg PO Q6H PRN PRN 5 Days #8 tablet 02/10/20 The following prescriptions were given: Ibuprofen [Motrin] 600 mg PO Q6H PRN #60 tab PRN Reason: Pain Transmission Status: Pending to [id number] Oxycodone [Oxyir] 2.5 - 5 mg PO Q6H PRN PRN 5 Days #8 tablet PRN Reason: severe pain Transmission Status: Received by [id number] Follow-Up: Call to make an appointment with your doctor for an incision check in 1-2 weeks. You will also need a 6 week post- follow up appointment. Test results from this visit will be discussed in further detail at your follow- up appointment, if applicable. Please Follow Up With: Liza Ayala MD - Call to make an appointment for an incision check in 1-2 [phone] When: You will need a post check in 6 weeks. Primary Care Physician: Care Physician,No Primary [Primary Care Provider] -
--- NOTE | 2020-02-10 09:00 | PCM.DC.SUM ---
Discharge Date and Diagnosis Date of Admission: 02/07/20 Date of Discharge: 02/10/20 Hospital Course and Treatment Consultations 02/07/20 15:41 Consult: Anesthesia Routine Comment: Reason For Exam: Labor Operations: - - Primary low transverse section with bilateral salpingectomy performed on 02/07/2020 Summary of Care Provided: The patient is a 24 year old female was admitted at 35+ gestational weeks with labor. Her labor progressed normally till she got to complete. She pushed for 3 hours and had attempted vacuum assisted vaginal delivery. However it was unsuccessful. At that point was recommended a primary section for CPD and arrest of descent. Patient desired to proceed and requested bilateral salpingectomy for sterilization. Benefits and alternatives to this were discussed with patient her questions were answered to her satisfaction she desired to proceed we discussed risk of permanency irreversibility risk of failure and regret. He declined reversible contraceptive options. The section and bilateral salpingectomy were performed. The patient tolerated them well. went to special care nursery. By postoperative day #3 the patient was ambulating, urinating tolerating regular diet without difficulty. She is managing her own blood sugars under the direction of endocrinology with her insulin pump. She was discharged home with routine instructions and prescriptions. She is to follow-up in the office in 1-2 in 6 weeks or as needed. [] - Physical Exam Vitals/I&O's: Vital Signs Temp Pulse Resp BP Pulse Ox 97.8 F 102 H 14 100/65 98 02/10/20 08:13 02/10/20 08:13 02/10/20 08:13 02/10/20 08:13 02/08/20 20:15 Oxygen Delivery Method Room Air Weight: 77.6 kg Body Mass Index (BMI) 29.3 Intake and Output for Last 24 Hours 02/08/20 02/09/20 02/10/20 23:59 23:59 23:59 Intake Total 1340.00 / 1340.00 Output Total 1200 / 1200 250 / 250 Balance 140.00 / 140.00 -250 / -250 Microbiology Past 72 Hours 02/07/20 Unknown Genital vaginal Group B Streptococcus Culture - Final Group B Beta Streptococcus is not isolated. 02/07/20 15:45 Mucosa - Nose SARS-CoV-2 Antigen (Rapid) - Final Current Medications Acetaminophen (Acetaminophen 500 Mg Tablet) 1,000 mg PO Q6H [facility] Last Admin: 02/10/20 08:07 Dose: 1,000 mg Documented by: Bisacodyl (Bisacodyl 10 Mg Suppository) 10 mg RECTAL UD PRN PRN Reason: If no BM Dextrose (Dextrose 50%-Water 25 Gm/50 Ml Disp.Syrin) 0 gm IV X1 PRN; Protocol PRN Reason: Hypoglycemia Ferrous Sulfate (Ferrous Sulfate 325 Mg Tablet) 325 mg PO 1200,1700 [facility] Last Admin: 02/09/20 17:05 Dose: 325 mg Documented by: Glucagon (Glucagon 1 Mg/Ml Syringe) 1 mg IM .X1 PRN PRN Reason: Hypoglycemia Hydrocortisone (Hydrocortisone 2.5% Crm) 1 applic TOPICAL TID PRN PRN; Protocol PRN Reason: Discomfort Methylergonovine Maleate (Methylergonovine 0.2 Mg/Ml Ampul) 0.2 mg IM X1 PRN PRN Reason: Uterine Atony Naloxone HCl (Naloxone 0.4 Mg/Ml Syringe) 0.02 mg IV Q1M PRN PRN Reason: RR <10 and pt unresponsive Naproxen (Naproxen 250 Mg Tablet) 500 mg PO Q8H [facility] Last Admin: 02/10/20 06:05 Dose: 500 mg Documented by: Ondansetron HCl (Ondansetron 4 Mg/2 Ml Vial) 4 mg IV Q4H PRN PRN PRN Reason: Nausea Oxycodone HCl (Oxycodone 5 Mg Tablet) 5 - 10 mg PO Q4H PRN PRN PRN Reason: Pain Score 4-10 Prochlorperazine Edisylate (Prochlorperazine 10 Mg/2 Ml Vial) 10 mg IV Q6H PRN PRN PRN Reason: NAUSEA Senna/Docusate Sodium (Senna/Docusate Sodium 1 Tablet) 1 - 2 tablet PO DAILY [facility] Last Admin: 02/09/20 08:04 Dose: 1 tablet Documented by: Simethicone (Simethicone 80 Mg Tablet) 80 mg PO [facility] PRN PRN Reason: Indigestion/stomach pain Sodium Chloride (0.9% Saline Lock 10 Ml Syringe) 5 - 15 ml IV UD PRN PRN Reason: SALINE FLUSH Last Admin: 02/08/20 23:42 Dose: 10 ml Documented by: Discharge Diet: No Restrictions Discharge Activity: Return to Normal Activity, May Not Drive - for 2 weeks, May not drive while taking narcotic pain medications., May Shower, May Take a Tub Bath - in 7 days. May resume sexual activity in: 4-6 weeks Additional Activity Instructions:: Nothing in the vagina for 4-6 weeks. You may return to work/school in 6 weeks. Call your doctor if your incision/area has: Continuous Slow Oozing, Sudden Increased Bleeding, Increased Pain/ Swelling, Increased Redness, Foul Smelling Discharge Call your doctor if you observe: Fever of 101 or Higher, Using more than one pad per hour - for 2 hours Suture Line Care: Avoid Pulling/Pushing, Avoid Pinching/Bending Cleanse incision/area with: Keep Dressing Clean & Dry Home Medications: Medications to take at Discharge Insulin Lispro [Humalog] 6 - 8 unit SQ TID 10/04/14 Acetaminophen [Tylenol] 325 mg PO PRN PRN 01/10/20 Prenat 115/Iron Fum/Folic/Dss 1 tab PO DAILY 01/10/20 Ondansetron HCl [Zofran] 4 mg PO PRN PRN 02/07/20 Ibuprofen [Motrin] 600 mg PO Q6H PRN #60 tab 02/10/20 Oxycodone [Oxyir] 2.5 - 5 mg PO Q6H PRN PRN 5 Days #8 tablet 02/10/20 Following Prescriptions Were Given to Patient: Ibuprofen [Motrin] 600 mg PO Q6H PRN #60 tab PRN Reason: Pain Transmission Status: [id number] Oxycodone [Oxyir] 2.5 - 5 mg PO Q6H PRN PRN 5 Days #8 tablet PRN Reason: severe pain Transmission Status: Re[id number] Primary Care Physician: Care Physician,No Primary [Primary Care Provider] - Please Follow Up With: Liza Ayala MD - Call to make an appointment for an incision check in 1-2 [phone] When: You will need a post check in 6 weeks. Medical Necessity - Tobacco Use Smoking Status: Never smoker Meaningful Use Info Meaningful Use Diagnoses (Choose all that apply): None applicable
[2020-02-10] MEDS: Ferrous Sulfate 325 MG Tablet PO (11:00)
[2020-02-10] MEDS: Senna/Docusate Sodium 1 Tablet PO (11:01)
== END 2020-02-10 11:10 | disposition home or self-care (01) | DRG 783 ==
LOC: WPOUT 15:44 → WP 23:29
PROVIDERS: Advanced Practice Midwife; Admitting Provider Obstetrics & Gynecology; Visit Provider Obstetrics & Gynecology
DX: O62.1 Secondary uterine inertia (principal); O60.14X0 Preterm labor third trimester with preterm delivery third trimester, not applicable or unspecified; O24.02 Pre-existing type 1 diabetes mellitus, in childbirth; Z37.0 Single live birth; Z3A.35 35 weeks gestation of pregnancy; O33.9 Maternal care for disproportion, unspecified; E10.65 Type 1 diabetes mellitus with hyperglycemia; Z96.41 Presence of insulin pump (external) (internal); Z30.2 Encounter for sterilization
CPT/HCPCS: 59025; 59050; 85025; 85027; 86850; 86900; 86901; 87081; 87426; 87653; 88302; 99218; J7120; A4216; G0378; J2405

== ENCOUNTER 2020-10-21 20:33 | Emergency (ER) | payer OTHER, MEDICAID, SELFPAY ==
[2020-02-07 14:58] VITALS: BMI 29.3
[2020-10-21 20:37] VITALS: BP 123/83; PULSE 96; RESP 18; TEMP 36.8; O2SAT 100; BMI 25.1
[2020-10-21 22:04] VITALS: PULSE 88; RESP 16; O2SAT 98
--- NOTE | 2020-10-21 22:17 | EDS_ITS ---
HPI History of Present Illness Chief Complaint: Eye Problem Informant: patient Narrative Narrative: Patient is a 25-year-old female with a past medical history of type 1 diabetes who presents to the emergency department for acute vision change. She states that around 7 PM tonight she had a black swirling sensation in her right eye. This has not resolved since then. She denies a complete loss of vision but it is clouding her vision. She is never had this before. She does wear corrective lenses and has taken this out. She denies any eye pain. No headache. No weakness or loss of sensation in extremities. No chest pain or shortness of breath. No fevers or chills. She denies any other symptoms currently. She denies any head trauma. She states that she has not seen an eye doctor lately as she previously had yearly eye exams but her physician quit. [facility] Medical History (Updated 10/21/20 @ 21:[address] Frank Willett DO) Insulin pump in place Type 1 diabetes Home Medications Humalog U-100 Insulin 2 unit CONTINUOUS SUBCUTANEOUS INFUSION TID 10/04/14 [History Last Taken 01/18/20 20:00 one] Allergy/AdvReac Type Severity Reaction Status Date / Time codeine Allergy Hives Verified 10/21/20 20:40 penicillin Allergy Vomiting Verified 10/21/20 20:40 Social History Smoking Status: Never smoker ROS ROS ED Constitutional Constitutional ED: Denies chills or fever(s) Eyes Eyes: Reports change in vision ENT ENT ED: Denies epistaxis or rhinorrhea Cardiovascular Cardiovascular: Denies chest pain or palpitations Respiratory/Chest Respiratory/Chest: Denies cough, dyspnea or dyspnea on exertion Gastrointestinal Gastrointestinal: Denies abdominal pain, diarrhea, nausea or vomiting Musculoskeletal Musculoskeletal: Denies back pain or neck pain Integumentary Denies rash Neurologic Neurologic: Denies dizziness, headache(s) or weakness EXAM Physical Exam Const Vital Signs: 10/21/20 20:37 10/21/20 22:04 Temperature 98.3 F Temperature Source Oral Pulse Rate 96 88 Respiratory Rate 18 16 Blood Pressure 123/83 H Blood Pressure Mean 96 Pulse Ox 100 98 Oxygen Delivery Method Room Air Positive well nourished and well developed General Appearance ED: well developed and NAD HEENT Reports normocephalic, head/scalp atraumatic and moist mucous membranes Eyes PERRL and EOMs intact bilaterally Neck supple General: Negative for tenderness Chest Wall inspection of chest normal Resp normal respiratory effort and clear to auscultation bilaterally Auscultation: Negative for rales, rhonchi or wheezes Cardio regular rate, regular rhythm and no murmurs GI normal to inspection, nondistended, normoactive bowel sounds and non-tender Palpation: soft; Negative for guarding or rebound tenderness present Extremity normal to inspection General Extremety ED: Negative for edema or tenderness General Extremity: Negative for edema Neuro oriented x3, CN's II-XII intact bilaterally and no sensory deficits noted Sensorium / Orientation: alert Motor Exam: strength 5/5 throughout Psych mental status grossly normal Skin no rashes or lesions noted MDM MDM MDM Narrative Medical decision making narrative: Patient presents to the ED for acute vision change in her left eye only. Upon arrival to the ED vital signs within normal limits. She is a benign physical exam. Eye exam is very benign. Were unable to test visual acuity as she has taken her contacts out and cannot see the board on both eyes very well. I did contact the on-call net developer architect, Dr. Gee. He believes that the patient is safe for discharge and close follow-up in his office on Saturday morning. If she develops any significant eye pain or redness she needs to give our office a call immediately or come back to the emergency department. At this time patient is stable for discharge. Return precautions are reviewed with her. She understands and is agreeable to plan. All questions are answered. Discharge Plan Triage Chief Complaint: Eye Problem ED Provider: Frank Willett Dx/Rx/DC Orders Clinical Impression: Alteration in vision Instructions: Understanding Vision Problems Prescriptions: No Action Humalog U-100 Insulin 100 UNIT/ML cartridge 2 unit continuous subcutaneous infusion TID RF: 0 Primary Care Provider: Care Physician,No Primary Referrals: Trip Gee MD [STAFF PHYSICIAN] - 2 Days Care Physician,No Primary [Primary Care Provider] - Disposition Disposition: Home, Self Care Discharge Date/Time: 10/21/20 22:05
== END 2020-10-21 22:05 | disposition home or self-care (01) ==
PROVIDERS: Emergency Provider Emergency Medicine
DX: H53.8 Other visual disturbances (principal); E10.9 Type 1 diabetes mellitus without complications; Z96.41 Presence of insulin pump (external) (internal); Z79.4 Long term (current) use of insulin
CPT/HCPCS: 99283

== ENCOUNTER 2022-01-07 19:45 | Emergency (ER) | payer OTHER, MEDICAID, SELFPAY ==
[2022-01-07 19:47] VITALS: BP 126/75; PULSE 115; RESP 16; TEMP 37.2; O2SAT 100; BMI 24.9
--- NOTE | 2022-01-07 20:10 | EDS_ITS ---
HPI <CELINE Oreilly - Last Filed: 01/07/22 21:22> History of Present Illness Chief Complaint: Hyperglycemia Narrative Narrative: 26-year-old female with PMH of type 1 diabetes presents with hyperglycemia and insulin pump malfunction today. She states she has a new insulin pump she supposed to use but is waiting on the training. She has been running out of supplies for her current pump. She saw her film reproducer last week and they were supposed to call in sub insulin to bridge her until then but it never arrived at her pharmacy. Today she noticed she was not feeling well and vomited once and checked her blood sugars and it was in the 500s. She felt the insulin injection site and it was wet like the insulin had not been going in properly. PFSH <CELINE Oreilly - Last Filed: 01/07/22 21:22> [facility] Medical History (Updated 01/07/22 @ 21:08 by CELINE Oreilly) Insulin pump in place Type 1 diabetes Home Medications insulin lispro 100 unit/mL subcutaneous cartridge (Humalog U-100 Insulin) 2 unit continuous subcutaneous infusion TID type I diabetic 10/04/14 [History Last Taken 01/18/20 20:00 one] insulin lispro 100 unit/mL subcutaneous pen (Humalog KwikPen (U-100) Insulin) 5 unit (0.05 mL) subcut TID #15 mL 01/07/22 [Rx Last Taken Unknown] insulin syringe needleless 1 mL #100 ea 01/07/22 [Rx Last Taken Unknown] Allergy/AdvReac Type Severity Reaction Status Date / Time codeine Allergy Hives Verified 01/07/22 19:46 penicillin Allergy Vomiting Verified 01/07/22 19:46 Social History Smoking Status: Never smoker ROS <CELINE Oreilly - Last Filed: 01/07/22 21:22> ROS ED ROS Narrative Constitutional: Negative for fever, chills, malaise. Eyes: Negative for visual change. ENT: Negative for sore throat, ear pain, rhinorrhea. CVS: Negative for palpitations, chest pain, syncope. Respiratory: Negative for shortness of breath, cough. GI: Positive for nausea, vomiting. Negative for abdominal pain, diarrhea, constipation, melena, hematochezia. : Negative for dysuria, hematuria or frequency. Neuro: Negative for headache, motor/sensory dysfunction. Skin: Negative for rash, abscess, or wound. Musc: Negative for joint pain, swelling, trauma. Heme: Negative for easy bruising, bleeding, lymphadenopathy. EXAM <CELINE Oreilly - Last Filed: 01/07/22 21:22> Physical Exam Narrative Exam Narrative: CONST: Patient sitting in no acute distress. EYES: Normal inspection. ENT: Normal inspection, moist mucous membranes. NECK: Normal inspection. RESP: No respiratory distress, CTAB. CVS: Tachycardic with regular rhythm, no murmur, no gallop. ABD: Soft and nontender, no guarding or rebound, nondistended. SKIN: Color normal, no rash, warm, dry, intact. EXTREMITIES: Normal appearance, no pedal edema. NEURO: Oriented x4. PSYCH: Normal affect. Const Vital Signs: 01/07/22 19:47 01/07/22 20:57 01/07/22 21:21 Temperature 98.9 F Temperature Source Temporal Pulse Rate 115 H 96 Respiratory Rate 16 16 Respiratory Effort Normal Respiratory Pattern Normal Blood Pressure 126/75 H 117/71 Blood Pressure Mean 92 86 Pulse Ox 100 100 Oxygen Delivery Method Room Air Room Air <Dr. Tristian Dunham MD - Last Filed: 01/07/22 21:54> Physical Exam Const Vital Signs: 01/07/22 19:47 01/07/22 20:57 01/07/22 21:21 Temperature 98.9 F Temperature Source Temporal Pulse Rate 115 H 96 Respiratory Rate 16 16 Respiratory Effort Normal Respiratory Pattern Normal Blood Pressure 126/75 H 117/71 Blood Pressure Mean 92 86 Pulse Ox 100 100 Oxygen Delivery Method Room Air Room Air MDM <CELINE Oreilly - Last Filed: 01/07/22 21:22> [facility] Narrative Medical decision making narrative: Patient has type 1 diabetes and her insulin pump started malfunctioning today causing hyperglycemia. She appears well and nontoxic. She is tachycardic at 115 with otherwise normal vital signs. Blood work shows glucose of 603, normal anion gap, and negative ketones which rules out DKA. She has slightly elevated creatinine of 1.21. Patient was treated with IV fluids, 9 units of lispro as this was the suggested dose by her insulin pump, and 20 units of Lantus. Plan will be to recheck sugar and send home with a humalog pen and instructions for a low dose sliding scale to get her through until she speaks with her film reproducer tomorrow. Lab Data Attestation: I reviewed the patient's lab results. Labs: Laboratory Results - last 24 hr 01/07/22 01/07/22 01/07/22 19:53 20:00 20:00 WBC 11.5 H RBC 4.95 Hgb 15.1 H Hct 44.2 MCV 89.3 MCH 30.5 MCHC 34.2 RDW Std Deviation 39.2 RDW Coeff of Dean 12.0 Plt Count 227 MPV 10.7 Immature Gran % (Auto) 0.300 Neut % (Auto) 80.1 H Lymph % (Auto) 14.4 L [place] % (Auto) 4.7 Eos % (Auto) 0.3 Baso % (Auto) 0.2 Absolute Neuts (auto) 9.2 H Absolute Lymphs (auto) 1.65 Nucleated RBC % 0 Sodium 131 L Potassium 4.3 Chloride 97 L Carbon Dioxide 25.0 Anion Gap 9 BUN 19 H Creatinine 1.21 H Estim Creat Clear Calc 60.84 Est GFR (MDRD) Af Amer 69 Est GFR (MDRD) Non-Af 57 L BUN/Creatinine Ratio 15.7 Glucose 603 H* Calcium 9.1 Acetone Level POC Glucose > 500 H* 01/07/22 01/07/22 20:00 21:16 WBC RBC Hgb Hct MCV MCH MCHC RDW Std Deviation RDW Coeff of Dean Plt Count MPV Immature Gran % (Auto) Neut % (Auto) Lymph % (Auto) [place] % (Auto) Eos % (Auto) Baso % (Auto) Absolute Neuts (auto) Absolute Lymphs (auto) Nucleated RBC % Sodium Potassium Chloride Carbon Dioxide Anion Gap BUN Creatinine Estim Creat Clear Calc Est GFR (MDRD) Af Amer Est GFR (MDRD) Non-Af BUN/Creatinine Ratio Glucose Calcium Acetone Level NEGATIVE POC Glucose 445 H <Dr. Tristian Dunham MD - Last Filed: 01/07/22 21:54> [facility] Lab Data Labs: Laboratory Results - last 24 hr 01/07/22 01/07/22 01/07/22 19:53 20:00 20:00 WBC 11.5 H RBC 4.95 Hgb 15.1 H Hct 44.2 MCV 89.3 MCH 30.5 MCHC 34.2 RDW Std Deviation 39.2 RDW Coeff of Dean 12.0 Plt Count 227 MPV 10.7 Immature Gran % (Auto) 0.300 Neut % (Auto) 80.1 H Lymph % (Auto) 14.4 L [place] % (Auto) 4.7 Eos % (Auto) 0.3 Baso % (Auto) 0.2 Absolute Neuts (auto) 9.2 H Absolute Lymphs (auto) 1.65 Nucleated RBC % 0 Sodium 131 L Potassium 4.3 Chloride 97 L Carbon Dioxide 25.0 Anion Gap 9 BUN 19 H Creatinine 1.21 H Estim Creat Clear Calc 60.84 Est GFR (MDRD) Af Amer 69 Est GFR (MDRD) Non-Af 57 L BUN/Creatinine Ratio 15.7 Glucose 603 H* Calcium 9.1 Acetone Level POC Glucose > 500 H* 01/07/22 01/07/22 20:00 21:16 WBC RBC Hgb Hct MCV MCH MCHC RDW Std Deviation RDW Coeff of Dean Plt Count MPV Immature Gran % (Auto) Neut % (Auto) Lymph % (Auto) [place] % (Auto) Eos % (Auto) Baso % (Auto) Absolute Neuts (auto) Absolute Lymphs (auto) Nucleated RBC % Sodium Potassium Chloride Carbon Dioxide Anion Gap BUN Creatinine Estim Creat Clear Calc Est GFR (MDRD) Af Amer Est GFR (MDRD) Non-Af BUN/Creatinine Ratio Glucose Calcium Acetone Level NEGATIVE POC Glucose 445 H Treatment and Re-Evaluation Narrative: Seen and evaluated independently and in conjunction with physician virtual assistant for advertisers. Agree with notes above unless documented otherwise. Patient with hyperglycemia and an episode of vomiting, no dyspnea. She has had polyuria today accordingly. Has not been able to change her insulin pump site in the last week, and it was leaking clear fluid down her abdomen and smelled like insulin, does not appear to be working properly because of this. She does not have subcutaneous insulin. She did not realize it was [id number]. We got her blood sugar down, ruled out DKA, and gave her a single dose of basal insulin at about one third of her daily usual requirement of approximately 1 unit/kg/day. We will give her information on sliding scale, we prescribed her an insulin pens that she has 1 for overnight just in case, and give her prescription for needles as well. Her exam is normal, she is doing well, speaking full sentences, benign abdomen. Discharge Plan Triage Chief Complaint: Hyperglycemia ED Midlevel Provider: Chelsi Chaney ED Provider: Tristian Dunham Dx/Rx/DC Orders Clinical Impression: Hyperglycemia due to type 1 diabetes mellitus, Complication of insulin pump Instructions: Blood Sugar Check Steps Prescriptions: New insulin lispro [Humalog KwikPen Insulin] 100 unit/mL insulin pen 5 unit subcut TID Qty: 15 0RF Rx Instructions: follow insulin sliding scale to bolus before each meal. (DME) insulin syringe needleless 1 mL syringe See Rx Instructions .Route Qty: 100 0RF Rx Instructions: As directed No Action Humalog U-100 Insulin 100 UNIT/ML cartridge 2 unit continuous subcutaneous infusion TID Label Comments: takes 17 in am 5 at noon and 7 at supper Rx Instructions: insulin pump continuously reading pt sugar and pt boluses herself with meals Primary Care Provider: Care Physician,No Primary Referrals: Care Physician,No Primary [Primary Care Provider] - Activity Restrictions/Additional Instructions: You were given Lantus 20 units here. I prescribed a pen you can use the fast- acting insulin and the sliding scale for the LOW DOSE. Call your film reproducer tomorrow. Disposition Disposition: Home, Self Care
[2022-01-07] MEDS: 0.9% Normal Saline 1,000 ML 999 ML IV ×2 (20:14→21:17)
[2022-01-07 20:16] LABS: Bedside Glucose > 500 mg/dL (74-106)
[2022-01-07 20:22] LABS: Absolute Lymphocyte Count 1.65 X10^3/uL (0.83-4.51); Absolute Neutrophil Count 9.2 X10^3/uL (2.0-7.7); Basophil# 0.02 X10^3/uL; Basophil% 0.2 % (0-1); Eosinophil# 0.04 X10^3/uL; Eosinophils% 0.3 % (0-5); Hematocrit 44.2 % (37-47); Hemoglobin 15.1 g/dL (12.0-15.0); Lymphocyte # 1.65 X10^3/ul (0.83-4.51); Lymphocyte % 14.4 % (19-41); Mean Corp Hgb Conc 34.2 g/dL (32-36); Mean Corpuscular Hgb 30.5 pg (27.0-32.0); Mean Corpuscular Volume 89.3 fL (81-99); Mean Platelet Vol. 10.7 fl (6.2-12.0); Monocyte# 0.54 X10^3/uL; Monocyte% 4.7 % (0-10); NRBC Flagged by Analyzer 0 % (0-5); Neutrophil # 9.19 X10^3/uL (2.7-7.7); Neutrophil % 80.1 % (47-70); Platelet Count 227 K/mm3 (150-450); RBC Distribution Width SD 39.2 fl (35.1-43.9); Red Blood Count 4.95 M/mm3 (4.2-5.4); White Blood Count 11.5 K/mm3 (4.4-11.0)
[2022-01-07 20:38] LABS: Anion Gap 9 (5-15); BUN 19 mg/dL (7-18); BUN/Creat Ratio 15.7 RATIO (10-20); Calcium,Total 9.1 mg/dL (8.5-10.1); Chloride 97 mmol/L (98-107); Creatinine, Serum 1.21 mg/dL (0.55-1.02); EST Glomerular Filtration Rate 57 mL/min (>60); Est Glom Filt Rate - Afr Amer 69 mL/min (>60); Estimated Creatinine Clearance 60.84 ml/min; Glucose 603 mg/dL (74-106); Potassium 4.3 mmol/L (3.5-5.1); Sodium Level 131 mmol/L (136-145)
[2022-01-07] MEDS: Insulin Glargine-YFGN 100 UNIT/ML Pen 20 UNIT SC (21:17)
[2022-01-07 21:21] VITALS: BP 117/71; PULSE 96; RESP 16; O2SAT 100
[2022-01-07 21:45] LABS: Bedside Glucose 445 mg/dL (74-106)
[2022-01-07 22:06] LABS: Bedside Glucose 423 mg/dL (74-106)
== END 2022-01-07 22:08 | disposition home or self-care (01) ==
PROVIDERS: Physician Assistant; Emergency Provider Emergency Medicine; Visit Provider Emergency Medicine
DX: T85.694A Other mechanical complication of insulin pump, initial encounter (principal); E10.65 Type 1 diabetes mellitus with hyperglycemia; Z96.41 Presence of insulin pump (external) (internal); Y80.2 Prosthetic and other implants, materials and accessory physical medicine devices associated with adverse incidents
CPT/HCPCS: 80048; 82009; 82962; 85025; 96361; 96374; 96375; 99283; J7030; A4216

== ENCOUNTER 2022-08-28 23:25 | Emergency (ER) | payer OTHER, MEDICAID, SELFPAY ==
[2022-08-28 23:27] VITALS: BP 101/70; PULSE 93; RESP 15; TEMP 36.9; O2SAT 100; BMI 26.9
[2022-08-29 01:09] LABS: Bedside Glucose 129 mg/dL (74-106)
--- NOTE | 2022-08-29 02:22 | RAD_ITS ---
EXAM: XR ABDOMEN, 1 VIEW CLINICAL INDICATION: constipation TECHNIQUE: Frontal supine view of the abdomen/pelvis. COMPARISON: No relevant prior studies available. FINDINGS: LOWER THORAX: No acute pathology. GASTROINTESTINAL TRACT: Moderate stool in the ascending and descending colon and redundant sigmoid. Mild gas and stool in the transverse colon. No dilated small bowel loops. ORGANS: Unremarkable as visualized. No organomegaly. No abnormal calcifications. BONES/JOINTS: No acute pathology. SOFT TISSUES: No acute pathology. RAD/Abdomen Single View (Portable) IMPRESSION: Moderate stool in much of the colon. Electronically Signed: Shelli Win MD at 3:32 EDT ,
[2022-08-29] MEDS: Ketorolac 15 MG/ML Vial IV (02:42)
[2022-08-29] MEDS: Metoclopramide 10 MG/2 ML Vial 5 MG IV (02:42)
[2022-08-29] MEDS: 0.9% Normal Saline 1,000 ML 1000 ML IV (02:43)
[2022-08-29 02:49] LABS: Mucous, Urine 0 SEEN /hpf (<or=2+); Red Blood Cells-Urine 0 SEEN /hpf (0-5)
[2022-08-29 02:49] LABS: Absolute Lymphocyte Count 1.12 X10^3/uL (0.83-4.51); Absolute Neutrophil Count 5.2 X10^3/uL (2.0-7.7); Basophil# 0.02 X10^3/uL; Basophil% 0.3 % (0-1); Eosinophils% 1.4 % (0-5); Hematocrit 41.2 % (37-47); Lymphocyte # 1.12 X10^3/ul (0.83-4.51); Lymphocyte % 16.2 % (19-41); Mean Corpuscular Hgb 29.6 pg (27.0-32.0); Mean Corpuscular Volume 87.1 fL (81-99); Monocyte# 0.45 X10^3/uL; Monocyte% 6.5 % (0-10); NRBC Flagged by Analyzer 0 % (0-5); Neutrophil % 75.3 % (47-70); Platelet Count 214 K/mm3 (150-450); RBC Distribution Width CV 12.3 % (11.6-14.6); RBC Distribution Width SD 39.5 fl (35.1-43.9); Red Blood Count 4.73 M/mm3 (4.2-5.4); White Blood Count 6.9 K/mm3 (4.4-11.0)
[2022-08-29 02:50] LABS: Color, Urine Yellow (Yellow); Glucose, Dipstick Normal (Normal); Ketone-Dipstick 15 mg/dl (Negative); Leukocyte Esterase-Dipstick 100 /ul (Negative); Nitrite-Dipstick Negative (Negative); Occult Blood-Urine Negative /ul (Negative); Protein-Dipstick 30 mg/dl (Negative); Urine Bilirubin Dipstick Negative (Negative); Urine Clarity Clear (Clear); Urine Urobilinogen 1 mg/dl (Normal)
[2022-08-29 02:53] LABS: Internal QC Validated? YES +Cl - CLEAR BKGD; Pregnancy, Urine Negative Negative
[2022-08-29 03:06] LABS: Squamous Epithelial Cells - UA 0-5 SEEN /hpf (5-10); White Blood Cells 0-5 SEEN /hpf (0-5)
[2022-08-29 03:07] LABS: Amorphous Sediment 2+; Bacteria 2+ /hpf (None Seen)
[2022-08-29 03:22] LABS: ALB/GLOB Ratio 1.1 RATIO (0.9-2.4); AST(SGOT) 15 U/L (15-37); Alanine Aminotransfer ALT/SGPT 7 U/L (13-56); Albumin, Serum 3.8 g/dL (3.2-5.0); Alkaline Phosphatase 71 U/L (45-117); Anion Gap 1 (5-15); BUN 14 mg/dL (7-18); BUN/Creat Ratio 12.6 RATIO (10-20); Calcium,Total 8.4 mg/dL (8.5-10.1); Chloride 105 mmol/L (98-107); Creatinine, Serum 1.11 mg/dL (0.55-1.02); EST Glomerular Filtration Rate 63 mL/min (>60); Est Glom Filt Rate - Afr Amer 76 mL/min (>60); Estimated Creatinine Clearance 65.74 ml/min; Globulin 3.5 g/dL (2.2-4.2); Glucose 162 mg/dL (74-106); Lipase 14 U/L (13-75); Potassium 4.1 mmol/L (3.5-5.1); Protein, Total 7.3 g/dL (6.4-8.2); Sodium Level 134 mmol/L (136-145)
--- NOTE | 2022-08-29 05:48 | EDS_ITS ---
HPI History of Present Illness Chief Complaint: General Illness Informant: patient Narrative Narrative: Patient is a 27-year-old female with history of insulin-dependent diabetes mellitus type 1 presenting for constipation, headaches, nausea and vomiting and a recent diagnosis of urinary tract infection. Patient states that she has a chronic history of constipation however it has been worse over the past few weeks. She states her last bowel movement was 2 months ago and that was induced by taking laxative. She notes she never really has regular bowel movements. She started having headache after dinner on Saturday nights, 3 days ago. She states it is frontal in nature. No help with ibuprofen. Gradual in onset. The following day her headache was worse. She had body aches and chills. She did not have a temperature on the thermometer but still wonders if she had a fever. She developed nausea and vomiting secondary headache. Yesterday [facility] to [facility] She had negative COVID and flu test as well as a negative test. Her urinalysis was positive for UTI and she was placed on Bactrim twice daily for 7 days. She not having any urinary symptoms. She also started taking MiraLAX but still not had a bowel movement. States her period is 2 weeks late. Has surgical history of and tubal ligation. No other complaints or concerns at this time. She states this does not feel like DKA. [facility] Medical History Insulin pump in place Type 1 diabetes Home Medications insulin lispro 100 unit/mL subcutaneous cartridge (Humalog U-100 Insulin) 2 unit continuous subcutaneous infusion TID type I diabetic 10/04/14 [History Last Taken 01/18/20 20:00 one] insulin lispro 100 unit/mL subcutaneous pen (Humalog KwikPen (U-100) Insulin) 5 unit (0.05 mL) subcut TID #15 mL 01/07/22 [Rx Last Taken Unknown] insulin syringe needleless 1 mL #100 ea 01/07/22 [Rx Last Taken Unknown] sulfamethoxazole 800 mg-trimethoprim 160 mg tablet 1 tab PO BID 08/29/22 [History Last Taken Unknown] Allergy/AdvReac Type Severity Reaction Status Date / Time codeine Allergy Hives Verified 08/28/22 23:30 penicillin Allergy Vomiting Verified 08/28/22 23:30 Social History Smoking Status: Never smoker ROS ROS ED Constitutional Constitutional ED: Reports chills; Denies fever(s) Eyes Eyes: Denies change in vision ENT ENT ED: Denies rhinorrhea or sore throat Cardiovascular Cardiovascular: Denies chest pain or palpitations Respiratory/Chest Respiratory/Chest: Denies cough or dyspnea Gastrointestinal Gastrointestinal: Reports constipation, nausea and vomiting; Denies abdominal pain Genitourinary Genitourinary ED: Denies dysuria, hematuria or urinary frequency Musculoskeletal Musculoskeletal: Denies arthralgias or myalgias Integumentary Denies rash Neurologic Neurologic: Reports headache(s); Denies paresthesias or weakness Psychiatric Psychiatric: Denies anxiety EXAM Physical Exam Const Vital Signs: 08/28/22 23:27 08/29/22 00:51 Temperature 98.4 F Temperature Source Temporal Pulse Rate 93 Respiratory Rate 15 Respiratory Effort Normal Non-Labored Respiratory Pattern Normal Blood Pressure 101/70 Blood Pressure Mean 80 Pulse Ox 100 Oxygen Delivery Method Room Air Positive well nourished and well developed General Appearance ED: well developed and NAD HEENT Reports dry mucous membranes Negative for trauma Mouth ED: Yes dry mucous membranes Mouth: dry mucous membranes Eyes PERRL and EOMs intact bilaterally Neck supple and no JVD Chest Wall inspection of chest normal and palpation of chest normal Resp normal respiratory effort and clear to auscultation bilaterally Cardio regular rate, regular rhythm and no murmurs GI normal to inspection, nondistended, normoactive bowel sounds and non-distended GI Narrative: Mild tenderness palpation of the lower abdomen Palpation: soft; Negative for guarding Back/Spine no CVA tenderness Extremity normal to inspection Neuro oriented x3 Sensorium / Orientation: alert Motor Exam: Negative for general weakness Psych mental status grossly normal Skin no rashes or lesions noted and no wounds MDM MDM MDM Narrative Medical decision making narrative: Patient evaluated for headache, nausea vomiting and constipation. She is have a history of abdominal surgeries as well as type 1 diabetes mellitus. Differential includes dehydration, viral syndrome, DKA, hyperglycemia, gastroparesis, constipation and less likely small bowel obstruction. Patient is given IV fluids, Reglan and Toradol for her symptoms in the emergency room. On repeat evaluation she states she is feeling little better. CBC largely normal with no leukocytosis. BMP is contaminated but does show 2+ bacteria and 100 leukocyte esterase with no nitrites. Culture sent and patient will continue to take her Bactrim. Her acetone is negative and I do not suspect DKA. Her blood sugar is only 162 on her BMP. KUB interpreted by myself as well as radiology shows moderate stool in much of the colon but no concerning air-fluid levels. Patient is given a soapsuds enema and has normal bowel movement but then a large bowel movement and states she is feeling much better. Her headache has resolved with these interventions. Patient will be discharged home to continue taking regular MiraLAX to help with her chronic constipation. She is given referral for GI. Discussed that she is a type I diabetic she is at increased risk of gastroparesis. Patient agreeable this plan of care. Discharged home in improved and stable condition. Lab Data Labs: Laboratory Results - last 24 hr 08/29/22 08/29/22 08/29/22 00:50 02:37 02:44 WBC 6.9 RBC 4.73 Hgb 14.0 Hct 41.2 MCV 87.1 MCH 29.6 MCHC 34.0 RDW Std Deviation 39.5 RDW Coeff of Dean 12.3 Plt Count 214 MPV 10.0 Immature Gran % (Auto) 0.300 Neut % (Auto) 75.3 H Lymph % (Auto) 16.2 L [place] % (Auto) 6.5 Eos % (Auto) 1.4 Baso % (Auto) 0.3 Absolute Neuts (auto) 5.2 Absolute Lymphs (auto) 1.12 Nucleated RBC % 0 Sodium Potassium Chloride Carbon Dioxide Anion Gap BUN Creatinine Estim Creat Clear Calc Est GFR (MDRD) Af Amer Est GFR (MDRD) Non-Af BUN/Creatinine Ratio Glucose Calcium Total Bilirubin AST ALT Alkaline Phosphatase Total Protein Albumin Globulin Albumin/Globulin Ratio Lipase Urine Color Yellow Urine Clarity Clear Urine pH 7.0 Ur Specific [place] 1.010 Urine Protein 30 H Urine Glucose (UA) Normal Urine Ketones 15 H Urine Occult Blood Negative Urine Nitrite Negative Urine Bilirubin Negative Urine Urobilinogen 1 H Ur Leukocyte Esterase 100 H Urine RBC 0 SEEN Urine WBC 0-5 SEEN Ur Squamous Epith Cells 0-5 SEEN Amorphous Sediment 2+ Urine Bacteria 2+ Urine Mucus 0 SEEN Urine Test Negative Acetone Level POC Glucose 129 H 08/29/22 08/29/22 02:44 02:44 WBC RBC Hgb Hct MCV MCH MCHC RDW Std Deviation RDW Coeff of Dean Plt Count MPV Immature Gran % (Auto) Neut % (Auto) Lymph % (Auto) [place] % (Auto) Eos % (Auto) Baso % (Auto) Absolute Neuts (auto) Absolute Lymphs (auto) Nucleated RBC % Sodium 134 L Potassium 4.1 Chloride 105 Carbon Dioxide 28.0 Anion Gap 1 L BUN 14 Creatinine 1.11 H Estim Creat Clear Calc 65.74 Est GFR (MDRD) Af Amer 76 Est GFR (MDRD) Non-Af 63 BUN/Creatinine Ratio 12.6 Glucose 162 H Calcium 8.4 L Total Bilirubin 0.40 AST 15 ALT 7 L Alkaline Phosphatase 71 Total Protein 7.3 Albumin 3.8 Globulin 3.5 Albumin/Globulin Ratio 1.1 Lipase 14 Urine Color Urine Clarity Urine pH Ur Specific [place] Urine Protein Urine Glucose (UA) Urine Ketones Urine Occult Blood Urine Nitrite Urine Bilirubin Urine Urobilinogen Ur Leukocyte Esterase Urine RBC Urine WBC Ur Squamous Epith Cells Amorphous Sediment Urine Bacteria Urine Mucus Urine Test Acetone Level NEGATIVE POC Glucose Radiography Diagnostic Testing: Clinical Impression(s) from Imaging Studies KUB X-Ray 08/29/22 02:22 IMPRESSION: Moderate stool in much of the colon. Electronically Signed: Shelli Win MD at 3:32 EDT , Discharge Plan Triage Chief Complaint: General Illness ED Provider: Karina Gusman Dx/Rx/DC Orders Clinical Impression: Constipation, Type 1 diabetes mellitus, Frontal headache Instructions: ED Constipation (Adult) Prescriptions: No Action Humalog U-100 Insulin 100 UNIT/ML cartridge 2 unit continuous subcutaneous infusion TID Label Comments: takes 17 in am 5 at noon and 7 at supper Rx Instructions: insulin pump continuously reading pt sugar and pt boluses herself with meals insulin lispro [Humalog KwikPen Insulin] 100 unit/mL insulin pen 5 unit subcut TID Qty: 15 0RF Rx Instructions: follow insulin sliding scale to bolus before each meal. (DME) insulin syringe needleless 1 mL syringe See Rx Instructions .Route Qty: 100 0RF Rx Instructions: As directed sulfamethoxazole-trimethoprim 800-160 mg tablet 1 tab PO BID Label Comments: Take 1 tablet (oral) 2 times per day for 7 days Stand Alone Forms: ED Work / School Excuse Primary Care Provider: Care Physician,No Primary Referrals: Friend,DO Fitz [Med Staff - Active Staff] - As Needed Care Physician,No Primary [Primary Care Provider] - Activity Restrictions/Additional Instructions: Your work-up was largely normal. Continue taking the antibiotics previously prescribed. Alternate ibuprofen and Tylenol for further headache and make sure you are drinking plenty of fluids. Would recommend you take daily MiraLAX to help make your bowel movements more consistent. This is not habit-forming. You been given referral for GI doctor to follow-up with given your ongoing issues with constipation. Disposition Disposition: Home, Self Care
[2022-08-29 06:01] VITALS: BP 105/68; PULSE 78; RESP 16; O2SAT 99
== END 2022-08-29 06:03 | disposition home or self-care (01) ==
PROVIDERS: Emergency Provider Emergency Medicine; Visit Provider Emergency Medicine
DX: K59.09 Other constipation (principal); E10.9 Type 1 diabetes mellitus without complications; Z79.4 Long term (current) use of insulin; R51.9 Headache, unspecified; Z96.41 Presence of insulin pump (external) (internal)
CPT/HCPCS: 74018; 80053; 81001; 81025; 82009; 82962; 83690; 85025; 96361; 96374; 96375; 99285; J7030; A4216

== ENCOUNTER 2023-08-17 21:20 | Emergency (ER) | payer OTHER, SELFPAY ==
[2023-08-17 21:20] VITALS: BP 107/64; PULSE 112; RESP 16; TEMP 36.2; O2SAT 97; BMI 25.7
[2023-08-17 21:22] VITALS: BP 107/64; PULSE 110; RESP 16; TEMP 36.2; O2SAT 98
[2023-08-17 22:22] VITALS: BP 99/58; PULSE 86; RESP 17; TEMP 36.7; O2SAT 99
[2023-08-17 22:36] LABS: Absolute Lymphocyte Count 0.18 X10^3/uL (0.83-4.51); Absolute Neutrophil Count 5.8 X10^3/uL (2.0-7.7); Bacteria 0 SEEN /hpf (None Seen); Eosinophil# 0.33 X10^3/uL; Eosinophils% 4.9 % (0-5); Hematocrit 41.4 % (37-47); Hemoglobin 14.1 g/dL (12.0-15.0); Lymphocyte # 0.18 X10^3/ul (0.83-4.51); Lymphocyte % 2.7 % (19-41); Mean Corp Hgb Conc 34.1 g/dL (32-36); Mean Corpuscular Hgb 29.9 pg (27.0-32.0); Mean Corpuscular Volume 87.9 fL (81-99); Monocyte# 0.39 X10^3/uL; Monocyte% 5.8 % (0-10); Mucous, Urine 0 SEEN /hpf (<or=2+); NRBC Flagged by Analyzer 0 % (0-5); Neutrophil # 5.76 X10^3/uL (2.7-7.7); Neutrophil % 86.2 % (47-70); POSITIVE DIFFERENTIAL YES; Platelet Count 149 K/mm3 (150-450); RBC Distribution Width CV 12.4 % (11.6-14.6); RBC Distribution Width SD 40.1 fl (35.1-43.9); Red Blood Cells-Urine 0 SEEN /hpf (0-5); Red Blood Count 4.71 M/mm3 (4.2-5.4); White Blood Count 6.7 K/mm3 (4.4-11.0)
[2023-08-17] MEDS: 0.9% Normal Saline (1000mL) 1,000 ML 999 ML IV (22:36)
[2023-08-17 22:38] LABS: Color, Urine Yellow (Yellow); Glucose, Dipstick Normal (Normal); Ketone-Dipstick Negative (Negative); Leukocyte Esterase-Dipstick 500 /ul (Negative); Nitrite-Dipstick Negative (Negative); Occult Blood-Urine 10 /ul (Negative); Protein-Dipstick 15 mg/dl (Negative); Urine Bilirubin Dipstick Negative (Negative); Urine Clarity Sl. Cloudy (Clear); Urine Urobilinogen Normal (Normal)
[2023-08-17 22:42] LABS: Internal QC Validated? YES +Cl - CLEAR BKGD; Pregnancy, Urine Negative Negative
[2023-08-17 22:44] LABS: Squamous Epithelial Cells - UA 5-10 SEEN /hpf (5-10); White Blood Cells 0-5 SEEN /hpf (0-5)
[2023-08-17 22:51] LABS: Anion Gap 7 (5-15); BUN 18 mg/dL (7-18); BUN/Creat Ratio 12.1 RATIO (10-20); Calcium,Total 8.8 mg/dL (8.5-10.1); Chloride 96 mmol/L (98-107); Creatinine, Serum 1.49 mg/dL (0.55-1.02); EST Glomerular Filtration Rate 44 mL/min (>60); Est Glom Filt Rate - Afr Amer 54 mL/min (>60); Estimated Creatinine Clearance 53.28 ml/min; Glucose 93 mg/dL (74-106); Potassium 3.2 mmol/L (3.5-5.1); Sodium Level 131 mmol/L (136-145)
[2023-08-17 23:03] LABS: Lactic Acid 1.3 mmol/L (0.4-1.9)
--- NOTE | 2023-08-17 23:11 | CT_ITS ---
EXAM: CT ABDOMEN AND PELVIS WITH INTRAVENOUS CONTRAST CLINICAL INDICATION: ? Pyelonephritis TECHNIQUE: Helically acquired images were obtained of the abdomen and pelvis with intravenous contrast. This CT exam was performed using one or more of the following dose reduction techniques: automated exposure control, adjustment of the mA and/or kV according to patient size, and/or use of iterative reconstruction technique. CONTRAST: IV 75mL Isovue-370 RADIATION DOSE: CTDIvol = 9.85 mGy, DLP = 536.69 mGy-cm COMPARISON: No relevant prior studies available. FINDINGS: LOWER THORAX: Unremarkable. Lung bases are clear. No cardiomegaly. No significant pericardial effusion. ABDOMEN: LIVER: Unremarkable. Homogeneous. No focal mass. GALLBLADDER AND BILE DUCTS: Unremarkable. No calcified gallstones. No gallbladder distention or wall edema. No intra- or extrahepatic biliary ductal dilation. PANCREAS: Unremarkable. No focal cystic or solid mass. SPLEEN: Unremarkable. Normal size without focal cystic or solid mass. ADRENALS: Unremarkable. No nodules. KIDNEYS AND URETERS: Normal enhancement of the renal parenchyma bilaterally. No ureteral stone or renal obstruction. Normal renal size and position. STOMACH AND BOWEL: Moderate amount of stool in the colon. No stomach or bowel distention. No focal inflammatory change. PELVIS: APPENDIX: The appendix is normal. BLADDER: Diffuse wall thickening of the bladder. REPRODUCTIVE: Unremarkable as visualized. No mass. ABDOMEN and PELVIS: INTRAPERITONEAL SPACE: Unremarkable. No ascites or other fluid collection. No free air. BONES/JOINTS: Unremarkable. No suspicious lytic or blastic abnormality. SOFT TISSUES: Unremarkable. No discrete abdominal or pelvic wall hernia. VASCULATURE: Unremarkable. Abdominal aorta is non-dilated. LYMPH NODES: Unremarkable. No enlarged lymph nodes. CT/Abdomen/Pelvis W IV Cont ONLY IMPRESSION: Diffuse wall thickening of the bladder. This likely indicates cystitis. No CT evidence of pyelonephritis. Electronically Signed: Roger Sosa MD at 23:30 EDT ,
[2023-08-18 00:20] VITALS: BP 98/56; PULSE 86; RESP 16; TEMP 37.1; O2SAT 99
--- NOTE | 2023-08-18 00:23 | EX.ED.DYSGE1 ---
HPI History of Present Illness Chief Complaint: Complaint Informant: patient Narrative Narrative: Patient is a 28-year-old female with past medical history of type 1 diabetes. She states that roughly 4 to 6 weeks ago she was seen at an outside hospital and had to be admitted for a kidney infection. She states she stayed 4 days in the hospital and then was discharged on antibiotic. She reports that she got better but never felt like her symptoms completely resolved. She states that she then felt like her symptoms were worsening once again so reportedly her PCP ordered outpatient labs which showed UTI and she has now been on Bactrim for 1 to 2 days. She states that she still has abdominal and back pain and she has concern for a kidney infection and what this comes in for evaluation [facility] Medical History (Updated 08/18/23 @ 00:[address] Amauri Summers, DO) delivery delivered Type 1 diabetes Insulin pump in place Home Medications ?Medication ?Instructions ?Recorded ?Last Taken ?Type insulin lispro 100 unit/mL 2 unit continuous subcutaneous 10/04/14 01/18/20 20:00 History subcutaneous cartridge (Humalog infusion TID type I diabetic one U-100 Insulin) insulin lispro 100 unit/mL 5 unit (0.05 mL) subcut TID #15 mL 01/07/22 Unknown Rx subcutaneous pen (Humalog KwikPen (U-100) Insulin) insulin syringe needleless 1 mL #100 ea 01/07/22 Unknown Rx sulfamethoxazole 800 1 tab PO BID 08/29/22 Unknown History mg-trimethoprim 160 mg tablet gabapentin 300 mg capsule 300 mg PO TID 14 days #42 caps 08/18/23 Unknown Rx ondansetron 4 mg disintegrating 4 mg PO TID PRN nausea and 08/18/23 Unknown Rx tablet vomiting #21 tabs Allergy/AdvReac Type Severity Reaction Status Date / Time codeine Allergy Hives Verified 08/17/23 21:23 penicillin Allergy Vomiting Verified 08/17/23 21:23 Surgical History (Updated 08/17/23 @ 22:22 by Beckie Ennis) Tubal ligation status Social History Smoking Status: Never smoker ROS ROS ED Constitutional Constitutional ED: Denies chills or fever(s) ENT ENT ED: Denies sore throat Cardiovascular Cardiovascular: Denies chest pain Respiratory/Chest Respiratory/Chest: Denies cough or dyspnea Gastrointestinal Gastrointestinal: Reports abdominal pain and nausea; Denies diarrhea or vomiting Genitourinary Genitourinary ED: Reports dysuria and urinary frequency Musculoskeletal Musculoskeletal: Reports back pain Integumentary Denies rash Neurologic Neurologic: Denies headache(s) Hematologic/Lymphatic Hematologic/Lymphatic: Denies easy bleeding or easy bruising EXAM Physical Exam Const Vital Signs: 08/17/23 21:20 08/17/23 21:22 08/17/23 22:22 Temperature 97.2 F L 97.2 F L 98.1 F Temperature Source Temporal Temporal Oral Pulse Rate 112 H 110 H 86 Respiratory Rate 16 16 17 Blood Pressure 107/64 107/64 99/58 L Blood Pressure Mean 78 78 71 Pulse Ox 97 98 99 Oxygen Delivery Method Room Air Room Air Room Air 08/18/23 00:20 Temperature 98.8 F Temperature Source Pulse Rate 86 Respiratory Rate 16 Blood Pressure 98/56 L Blood Pressure Mean 70 Pulse Ox 99 Oxygen Delivery Method Positive well nourished and well developed General Appearance ED: well developed; Negative for pallor HEENT Reports moist mucous membranes HEENT Narrative: No tongue or lip swelling no oral lesions no airway edema or compromise Eyes PERRL and EOMs intact bilaterally General Eye ED: Negative for scleral icterus Neck supple Neck Narrative: No nuchal rigidity or meningeal signs noted Resp normal respiratory effort and clear to auscultation bilaterally Cardio regular rhythm Rate: tachycardic and other Other Details: Slightly tachycardic rate with regular rhythm No murmurs rubs or gallops Radial and carotid pulses are equal and symmetric GI non-distended and no masses GI Narrative: Abdomen is soft and nondistended with normal active bowel sounds. There is mild diffuse pain on palpation without voluntary guarding or rigidity. No pulsatile mass or fluid wave Auscultation: normoactive bowel sounds Palpation: soft Back/Spine Back/Spine Narrative: Diffuse pain on palpation of the low to mid back No bony deformity or step-off of the thoracic or lumbar spine no midline tenderness to palpation Extremity normal to inspection Extremity Narrative: No asymmetric edema no pitting edema negative Homans' sign bilaterally Neuro oriented x3, CN's II-XII intact bilaterally and no sensory deficits noted Sensorium / Orientation: alert Motor Exam: strength 5/5 throughout Psych Psych Narrative: Patient has a anxious affect Skin no rashes or lesions noted, no wounds and skin turgor normal General Skin Exam: Negative for jaundice or pallor MDM MDM MDM Narrative Medical decision making narrative: Patient arrived to the ER overall stable vitals. She reported that she had to be admitted to the hospital roughly 4 to 6 weeks ago for a similar event. Therefore differential diagnosis is for UTI versus pyelonephritis versus kidney stone versus acute kidney injury versus DKA versus HHS. Basic blood work was obtained and shows normal white count and normal lactic acid value. Serum bicarb and anion gap are also normal going against DKA. Calculated serum osmolality level is 273 going against HHS. Patient's creatinine is only slightly elevated at 1.49 which is not high enough from her baseline of approximately 1.1 to warrant acute kidney injury admission. CT scan with IV contrast shows no findings of of kidney stone or fat stranding around the kidney to suggest infection. There is also no signs of intestinal infection such as appendicitis. The patient's CT scan does show thickening of her bladder consistent with cystitis which is nonspecific but her urine sample does not show any sign of infection as 0 bacteria were reported. Therefore at this time with improvement of vital signs with IV hydration and overall negative workup not showing signs of acute pyelonephritis DKA HHS sepsis or acute kidney injury there is not any need for admission and she is otherwise discharged home and can continue her antibiotics History & Record Review Discussion w/independent historian: Patient Lab Data Attestation: I reviewed the patient's lab results. Labs: Laboratory Results - last 24 hr 08/17/23 22:25 WBC 6.7 RBC 4.71 Hgb 14.1 Hct 41.4 MCV 87.9 MCH 29.9 MCHC 34.1 RDW Std Deviation 40.1 RDW Coeff of Dean 12.4 Plt Count 149 L MPV 11.0 Immature Gran % (Auto) 0.400 Neut % (Auto) 86.2 H Lymph % (Auto) 2.7 L [place] % (Auto) 5.8 Eos % (Auto) 4.9 Baso % (Auto) 0.0 Absolute Neuts (auto) 5.8 Absolute Lymphs (auto) 0.18 L Nucleated RBC % 0 Sodium 131 L Potassium 3.2 L Chloride 96 L Carbon Dioxide 28.0 Anion Gap 7 BUN 18 Creatinine 1.49 H Estim Creat Clear Calc 53.28 Est GFR (MDRD) Af Amer 54 L Est GFR (MDRD) Non-Af 44 L BUN/Creatinine Ratio 12.1 Glucose 93 Lactic Acid 1.3 Calcium 8.8 Urine Color Yellow Urine Clarity Sl. Cloudy Urine pH 6.0 Ur Specific [place] 1.010 Urine Protein 15 H Urine Glucose (UA) Normal Urine Ketones Negative Urine Occult Blood 10 H Urine Nitrite Negative Urine Bilirubin Negative Urine Urobilinogen Normal Ur Leukocyte Esterase 500 H Urine RBC 0 SEEN Urine WBC 0-5 SEEN Ur Squamous Epith Cells 5-10 SEEN Urine Bacteria 0 SEEN Urine Mucus 0 SEEN Urine Test Negative Radiography Diagnostic Testing: Clinical Impression(s) from Imaging Studies Abdomen/Pelvis CT 08/17/23 23:11 IMPRESSION: Diffuse wall thickening of the bladder. This likely indicates cystitis. No CT evidence of pyelonephritis. Electronically Signed: Roger Sosa MD at 23:30 EDT , Discharge Plan Triage Chief Complaint: Complaint ED Provider: Amauri Summers Dx/Rx/DC Orders Clinical Impression: Cystitis, Type 1 diabetes mellitus Instructions: Diabetes: Caring for Your Body, ED Cystitis Female Adult Prescriptions: New gabapentin 300 mg capsule 300 mg PO TID 14 Days Qty: 42 0RF ondansetron 4 mg tablet,disintegrating 4 mg PO TID PRN (Reason: nausea and vomiting) Qty: 21 0RF No Action Humalog U-100 Insulin 100 UNIT/ML cartridge 2 unit continuous subcutaneous infusion TID Patient Comments: takes 17 in am 5 at noon and 7 at supper Rx Instructions: insulin pump continuously reading pt sugar and pt boluses herself with meals insulin lispro [Humalog KwikPen Insulin] 100 unit/mL insulin pen 5 unit subcut TID Qty: 15 0RF Rx Instructions: follow insulin sliding scale to bolus before each meal. (DME) insulin syringe needleless 1 mL syringe See Rx Instructions .Route Qty: 100 0RF Rx Instructions: As directed sulfamethoxazole-trimethoprim 800-160 mg tablet 1 tab PO BID Patient Comments: Take 1 tablet (oral) 2 times per day for 7 days Primary Care Provider: Care Physician,No Primary Referrals: Jude Paul MD [Med Staff - Active Staff] - Care Physician,No Primary [Primary Care Provider] - Activity Restrictions/Additional Instructions: Your urine sample showed no signs of infection/bacteria therefore continue to take the Bactrim as directed. Your bladder was thickened on the CT scan which is nonspecific in nature secondary to your history of type 1 diabetes and your current symptoms follow-up with urology to discuss potential further testing. Return to the ER should you have any further concerns Print Language: Martiniquais Disposition Disposition: Home, Self Care Discharge Date/Time: 08/18/23 00:34
[2023-08-18] MEDS: Ondansetron ODT 4 MG Tablet PO (00:31)
[2023-08-18] MEDS: Gabapentin 300 MG Capsule PO (00:31)
== END 2023-08-18 00:34 | disposition home or self-care (01) ==
PROVIDERS: Emergency Provider Emergency Medicine; Visit Provider Emergency Medicine
DX: N30.90 Cystitis, unspecified without hematuria (principal); Z79.4 Long term (current) use of insulin; E10.9 Type 1 diabetes mellitus without complications; Z96.41 Presence of insulin pump (external) (internal); Z98.51 Tubal ligation status
CPT/HCPCS: 74177; 80048; 81001; 81025; 83605; 85025; 96360; 96361; 99282; J7030; Q9967; A4216